=== PATIENT | female | born 1955 | race Caucasian/White ===

== ENCOUNTER 2020-08-29 09:02 | Outpatient (REF) | payer BC, SELFPAY ==
--- NOTE | 2020-08-29 09:06 | XR_ITS ---
EXAMINATION: XR HIP, RIGHT CLINICAL INFORMATION: Pain COMPARISON: None TECHNIQUE: 2 views of the right hip of the right hip. FINDINGS: There is no evidence of acute fracture or dislocation of the right hip. Right hip joint spaces maintained. Subchondral cysts/. Erosion is seen about the junctions femoral head and neck. No destructive bony lesion. No femoral head collapse. XR/XR hip RT min 2V IMPRESSION: No significant bony abnormality of the right hip identified.
== END 2020-08-29 09:03 | disposition home or self-care (01) ==
LOC: HO.HMGCX 09:02
PROVIDERS: PCP Internal Medicine; Visit Provider Internal Medicine
DX: M25.551 Pain in right hip (principal); S82.899A Other fracture of unspecified lower leg, initial encounter for closed fracture; Z78.0 Asymptomatic menopausal state
CPT/HCPCS: 73502

== ENCOUNTER 2020-11-20 07:47 | Outpatient (REF) | payer BC, SELFPAY ==
--- NOTE | ~2020-11-20 | MM_ITS ---
EXAMINATION: BONE DENSITOMETRY CLINICAL INDICATION: Menopause. COMPARISON: Baseline BD dated 07/18/2010. MRI cervical spine report, 10/23/2014 TECHNIQUE: Using a [employer] DXA System (software version: 13.1) manufactured by [employer], dual-energy x-ray absorptiometry was performed of the lumbar spine and left hip. The images are of good technical quality. Summary results are attached. FINDINGS: AP SPINE L1-L4: Current: BMD 0.917 g/cm2, Z-score -0.4, T-score -2.2, osteopenia, 21.3% decrease from baseline (<5% change is not significant). Baseline: BMD 1.165 g/cm2. LEFT FEMUR, NECK: Current: BMD 0.628 g/cm2, Z-score -1.4, T-score -3.0, osteoporosis. Baseline: BMD 0.827 g/cm2. LEFT FEMUR, TOTAL: Current: BMD 0.594 g/cm2, Z-score -2.0, T-score -3.3, osteoporosis, 22.7% decrease from baseline (<5% change is not significant). Baseline: BMD 0.768 g/cm2. IDENTIFIED RISK FACTORS: Menopause, history of fracture (adult). HISTORY OF FRACTURE: Ankle. No insufficiency fracture reported. History sheet notes spinal fracture (epidural collection noted on remote cervical MR 2015). MEDICATIONS: Vitamin D. MM/XR DEXA axial skeleton IMPRESSION: 1. DIAGNOSIS: Osteoporosis based on the lowest T-score value of -3.3 in the total femur applying World Health Organization criteria. 2. 10-YEAR FRACTURE RISK PREDICTION, FRAX: Major osteoporotic fracture (clinical spine, forearm, hip or shoulder) 14.5%. Hip fracture 4.2%. 3. Treatment Recommendations: NOF guidelines recommend consideration for treatment in postmenopausal women and men age 50 and older presenting with the following: -A hip or vertebral (clinical or morphometric) fracture. -T-score less than or equal to -2.5 at the femoral neck or spine after appropriate evaluation to exclude secondary causes. -Low bone mass at the hip or spine and a 10-year fracture probability by FRAX of greater than or equal to 3% for hip fracture or greater than or equal to 20% for major osteoporotic fracture based on the [place] adapted WHO algorithm. 4. Other Recommendations: All treatment decisions require clinical judgment and consideration of individual patient factors, including patient preferences, comorbidities, previous drug use, risk factors not captured in the FRAX model (e.g. frailty, falls, vitamin D deficiency, increased bone turnover, interval significant decline in bone density) and possible under or overestimation of fracture risk by FRAX. Additional medical evaluation for secondary cause of low bone mineral density may be appropriate. FUTURE SCAN RECOMMENDATION: People with diagnosed cases of osteoporosis or at high risk for fracture should have regular bone mineral density tests. For patients eligible for Medicare, routine testing is allowed once every 2 years. The testing frequency can be increased to one year for patients who have rapidly progressing disease, those who are receiving or discontinuing medical therapy to restore bone mass, or have additional risk factors. ctors.
--- NOTE | ~2020-11-20 | MM_ITS ---
EXAMINATION: MM SCREENING DIGITAL BREAST TOMOSYNTHESIS, BILATERAL CLINICAL INFORMATION: Screening. Asymptomatic. The lifetime risk of breast cancer based on the Tyrer-Cuzick Model is 7%. COMPARISON: Mammography: 11/15/2019, 11/08/2018, 09/30/2017, 09/11/2017 TECHNIQUE: Digital breast tomosynthesis is performed in both the craniocaudal and mediolateral oblique views along with computer-aided detection (CAD). Synthesized 2D images are generated from the tomosynthesis. Additional exaggerated left CC view is provided. FINDINGS: The breasts are heterogeneously dense, which may obscure small masses (ACR BI-RADS breast composition Category c). There are no significant masses, abnormal calcifications, or other abnormalities. Parenchymal pattern is similar to prior studies. The axilla and skin contours are unremarkable. MM/MM tomosynthesis screening BI IMPRESSION: No mammographic evidence of malignancy. ASSESSMENT: BI-RADS 1: Negative RECOMMENDATION: Routine annual mammography screening. This patient's information was entered into a reminder system with a target due date for their next mammogram.
== END 2020-11-20 07:48 | disposition home or self-care (01) ==
LOC: HO.MAMMO 07:47
PROVIDERS: PCP Internal Medicine; Visit Provider Internal Medicine
DX: Z12.31 Encounter for screening mammogram for malignant neoplasm of breast (principal); Z13.820 Encounter for screening for osteoporosis; S82.899A Other fracture of unspecified lower leg, initial encounter for closed fracture; Z78.0 Asymptomatic menopausal state
CPT/HCPCS: 77063; 77067; 77080

== ENCOUNTER → 2021-03-25 11:10 | Outpatient (BNVA) | payer BC, SELFPAY | PROVIDERS: PCP Internal Medicine; Visit Provider Internal Medicine ==

== ENCOUNTER 2021-04-02 07:53 | Outpatient (REF) | payer BC, SELFPAY ==
[2021-04-02 09:21] LABS: Alanine Aminotransferase 16 U/L (0-31); Albumin Level 4.3 g/dL (3.5-5.0); Alkaline Phosphatase 134 U/L (39-117); Anion Gap 12 (12-20); Aspartate Amino Transferase 24 U/L (5-31); Bilirubin Total 0.5 mg/dL (0.0-1.0); Blood Urea Nitrogen 11 mg/dL (9-16); Carbon Dioxide 28 mmol/L (22-29); Chloride 104 mmol/L (96-108); Estimated Glomerular Filt Rate > 60; Glucose Random 80 mg/dL (60-115); Phosphorus 4.2 mg/dL (2.7-4.5); Sodium 139 mmol/L (135-145); Total Protein 6.9 g/dL (6.5-8.0)
[2021-04-02 09:46] LABS: Free T4 (Free Thyroxine) 1.13 ng/dL (0.71-1.85); Thyroid Stimulating Hormone 0.82 uIU/mL (0.32-4.0); Vitamin D 25-OH Total 38.8 ng/mL (>30)
[2021-04-03 09:17] LABS: Calcium, Ionized 5.3 mg/dL (4.8-5.6)
[2021-04-03 13:46] LABS: Total Volume 24 Hour Urine 3175 mL
[2021-04-03 16:02] LABS: Creatinine, 24Hr Urine 0.8 G/Day (1.0-2.0)
[2021-04-04 09:12] LABS: Calcium (PTHI) 9.9 mg/dL (8.6-10.4); PTHI 43 pg/mL (14-64)
[2021-04-04 19:01] LABS: Calcium, 24 Hr Urine 140 mg/24 h; Calcium/Creatinine Ratio 163 mg/g creat (30-275); Creatinine 24Hr Urine 0.86 g/24 h (0.50-2.15)
[2021-04-08 13:12] LABS: Prot Elec - Albumin 4.4 g/dL (3.8-4.8); Prot Elec - Alpha1 0.3 g/dL (0.2-0.3); Prot Elec - Alpha2 0.7 g/dL (0.5-0.9); Prot Elec - Beta 1 0.5 g/dL (0.4-0.6); Prot Elec - Beta 2 0.2 g/dL (0.2-0.5); Prot Elec - Gamma 0.9 g/dL (0.8-1.7); Prot Elec - Total Protein 6.9 g/dL (6.1-8.1)
== END 2021-04-02 07:54 | disposition home or self-care (01) ==
LOC: HO.LAB 07:53
PROVIDERS: Absent Provider Internal Medicine; PCP Internal Medicine; Visit Provider Internal Medicine
DX: M81.0 Age-related osteoporosis without current pathological fracture (principal); E55.9 Vitamin D deficiency, unspecified
CPT/HCPCS: 36415; 80053; 82306; 82330; 82340; 82570; 83970; 84100; 84155; 84165; 84439; 84443

== ENCOUNTER 2021-04-06 10:51 | Outpatient (REF) | payer BC, SELFPAY ==
[2021-04-11 06:46] LABS: N-Telopeptide 106 (see note); NTXCreaRU 65 mg/dL (20-275)
== END 2021-04-06 10:52 | disposition home or self-care (01) ==
LOC: HO.LNP 10:51
PROVIDERS: Visit Provider Internal Medicine
DX: M81.0 Age-related osteoporosis without current pathological fracture (principal)
CPT/HCPCS: 82523

== ENCOUNTER → 2021-07-01 07:52 | Outpatient (BNVA) | payer BC, SELFPAY | PROVIDERS: PCP Internal Medicine; Visit Provider Internal Medicine ==

== ENCOUNTER 2021-07-16 09:14 | Outpatient (REF) | payer BC, SELFPAY ==
[2021-07-16 10:29] LABS: Albumin Level 4.3 g/dL (3.5-5.0); Calcium 9.9 mg/dL (8.4-10.2)
[2021-07-16 10:47] LABS: Alanine Aminotransferase 32 U/L (0-31); Albumin Level 4.4 g/dL (3.5-5.0); Alkaline Phosphatase 136 U/L (39-117); Anion Gap 14 (12-20); Aspartate Amino Transferase 42 U/L (5-31); Bilirubin Total 0.5 mg/dL (0.0-1.0); Blood Urea Nitrogen 9 mg/dL (9-16); Carbon Dioxide 27 mmol/L (22-29); Chloride 104 mmol/L (96-108); Cholesterol 181 mg/dL; Estimated Glomerular Filt Rate > 60; Glucose Random 87 mg/dL (60-115); HDL Cholesterol 82 mg/dL; LDL Cholesterol Calculated 75 mg/dl; Phosphorus 4.4 mg/dL (2.7-4.5); Potassium 4.8 mmol/L (3.3-5.1); Sodium 140 mmol/L (135-145); Triglycerides 124 mg/dL
[2021-07-18 15:52] LABS: Calcium (PTHI) 9.7 mg/dL (8.6-10.4); PTHI 43 pg/mL (14-64)
[2021-07-19 09:36] LABS: Alkaline Phosphatase Bone 26.7 mcg/L (5.6-29.0)
== END 2021-07-16 09:15 | disposition home or self-care (01) ==
LOC: HO.LAB 09:14
PROVIDERS: PCP Internal Medicine; Visit Provider Internal Medicine
DX: I10 Essential (primary) hypertension (principal); M81.0 Age-related osteoporosis without current pathological fracture; Z78.0 Asymptomatic menopausal state; E55.9 Vitamin D deficiency, unspecified
CPT/HCPCS: 36415; 80053; 80061; 82040; 82306; 82310; 83970; 84075; 84100

== ENCOUNTER 2021-07-18 07:31 | Outpatient (REF) | payer BC, SELFPAY ==
[2021-07-18 08:15] LABS: Creatinine, mg/dL 26.69
[2021-07-18 09:22] LABS: Creatinine, 24Hr Urine 0.9 G/Day (1.0-2.0); Total Volume 24 Hour Urine 3225 mL
[2021-07-19 18:52] LABS: Calcium, 24 Hr Urine 123 mg/24 h; Calcium/Creatinine Ratio 131 mg/g creat (30-275); Creatinine 24Hr Urine 0.94 g/24 h (0.50-2.15)
== END 2021-07-18 07:32 | disposition home or self-care (01) ==
LOC: HO.LNP 07:31
PROVIDERS: Visit Provider Internal Medicine
DX: M81.0 Age-related osteoporosis without current pathological fracture (principal)
CPT/HCPCS: 82340; 82570

== ENCOUNTER 2021-07-19 10:01 | Outpatient (REF) | payer BC, SELFPAY ==
[2021-07-19 12:05] LABS: Vitamin D 25-OH Total 43.5 ng/mL (>30)
[2021-07-19 12:20] LABS: Alanine Aminotransferase 84 U/L (0-31); Albumin Level 4.4 g/dL (3.5-5.0); Alkaline Phosphatase 143 U/L (39-117); Anion Gap 12 (12-20); Aspartate Amino Transferase 71 U/L (5-31); Bilirubin Direct 0.2 mg/dL (0.0-0.5); Bilirubin Total 0.6 mg/dL (0.0-1.0); Blood Urea Nitrogen 10 mg/dL (9-16); Calcium 10.2 mg/dL (8.4-10.2); Carbon Dioxide 28 mmol/L (22-29); Chloride 104 mmol/L (96-108); Estimated Glomerular Filt Rate > 60; Glucose Fasting 88 mg/dL (60-99); Potassium 4.8 mmol/L (3.3-5.1); Sodium 139 mmol/L (135-145); Total Protein 6.9 g/dL (6.5-8.0)
== END 2021-07-19 10:02 | disposition home or self-care (01) ==
LOC: HO.LAB 10:01
PROVIDERS: PCP Internal Medicine; Visit Provider Internal Medicine
DX: I10 Essential (primary) hypertension (principal); M81.0 Age-related osteoporosis without current pathological fracture; Z78.0 Asymptomatic menopausal state
CPT/HCPCS: 36415; 80048; 80076; 82306

== ENCOUNTER 2021-07-25 07:26 | Outpatient (REF) | payer BC, SELFPAY ==
[2021-07-25 11:39] LABS: Alanine Aminotransferase 31 U/L (0-31); Aspartate Amino Transferase 25 U/L (5-31)
[2021-07-26 09:11] LABS: Lyme Abs Screen <0.90 index
== END 2021-07-25 07:27 | disposition home or self-care (01) ==
LOC: HO.HMGCLDS 07:26
PROVIDERS: PCP Internal Medicine; Visit Provider Internal Medicine
DX: I10 Essential (primary) hypertension (principal); M81.0 Age-related osteoporosis without current pathological fracture; Z78.0 Asymptomatic menopausal state; T14.8XXA Other injury of unspecified body region, initial encounter; W57.XXXA Bitten or stung by nonvenomous insect and other nonvenomous arthropods, initial encounter
CPT/HCPCS: 36415; 84450; 84460; 86617; 86618

== ENCOUNTER 2021-08-12 14:16 | Outpatient (REF) | payer BC, SELFPAY ==
--- NOTE | ~2021-08-12 | US_ITS ---
EXAMINATION: US THYROID CLINICAL INFORMATION: Age-related osteoporosis, ? enlarged parathyroid. COMPARISON: None TECHNIQUE: Linear transducer grayscale and color Doppler examination with attention to the region of the thyroid. FINDINGS: SIZE: Measurements of the thyroid lobes and nodules are given in sagittal, anteroposterior and transverse dimensions respectively. Right Thyroid Lobe: 5.7 x 1.7 x 1.4 cm, volume 7.1 mL. Parenchyma: The gland echotexture is heterogeneous. Thyroid vascularity is increased. Left Thyroid Lobe: 4.8 x 1.7 x 1.6 cm, volume 6.8 mL. Parenchyma: The gland echotexture is heterogeneous. Thyroid vascularity is increased. Isthmus: 0.3 cm in maximum AP dimension. Estimated total number of nodules greater than or equal to 1 cm: 0. Reptile Farmer nodules are described as follows: 1. Location: Right isthmus. Size: 0.7 x 0.3 x 0.5 cm, volume 0.06 mL. Nodule characteristics: Composition: Spongiform (0). Echogenicity: Anechoic (0). Shape: Not taller than wide (0). Margins: Smooth (0). Echogenic Foci: None (0). ACR TI-RADS total points: 0 ACR TI-RADS category: 1 2. Location: Lateral mid right. Size: 0.4 x 0.3 x 0.3 cm, volume 0.02 mL. Nodule characteristics: Composition: Spongiform (0). Echogenicity: Anechoic (0). Shape: Not taller than wide (0). Margins: Smooth (0). Echogenic Foci: None (0). ACR TI-RADS total points: 0 ACR TI-RADS category: 1 3. Location: Mid/inferior right. Size: 0.5 x 0.4 x 0.4 cm, volume 0.04 mL. Nodule characteristics: Composition: Solid (2). Echogenicity: Isoechoic (1). Shape: Not taller than wide (0). Margins: Ill-defined (0). Echogenic Foci: None (0). ACR TI-RADS total points: 3 ACR TI-RADS category: 3 NODES: No lymphadenopathy is seen in the tissue surrounding the thyroid gland. US/US thyroid IMPRESSION: Heterogeneous, hypervascular multinodular thyroid gland. All nodules are subcentimeter in size and do not warrant follow up imaging per ACR recommendations. Correlation with thyroid function tests recommended. ACR TI-RADS RECOMMENDATION REFERENCE: Ultrasound-guided fine-needle aspiration, followup ultrasound, no further follow up. * TR1 (0 point) and TR 2 (2 points): No FNA or follow up * TR3 (3 points): FNA if more than or equal to 2.5 cm in maximum dimension, followup ultrasound in 1, 3 and 5 years if 1.5 to 2.4 cm in maximum dimension. * TR3, TR4 or TR5 nodules that are below the size threshold for follow up receive no follow up.
== END 2021-08-12 14:17 | disposition home or self-care (01) ==
LOC: HO.HMGCX 14:16
PROVIDERS: PCP Internal Medicine; Visit Provider Internal Medicine
DX: M81.0 Age-related osteoporosis without current pathological fracture (principal)
CPT/HCPCS: 76536

== ENCOUNTER → 2021-09-10 08:30 | Outpatient (BNVA) | payer MEDICARE, SELFPAY | PROVIDERS: PCP Internal Medicine; Referring Provider Internal Medicine; Visit Provider Nurse Practitioner Family | DX: R74.8 Abnormal levels of other serum enzymes (principal) | CPT/HCPCS: 99202 ==

== ENCOUNTER 2021-09-11 08:25 | Outpatient (REF) | payer MEDICARE, SELFPAY ==
[2021-09-16 13:16] LABS: Mitochondrial Antibodies NEGATIVE (NEGATIVE)
[2021-09-17 20:52] LABS: Alk.Phos Iso. Macrohepatic 0 % (<=0); Alk.Phos Isoenzymes Bone 57 % (28-66); Alk.Phos Isoenzymes Intest 10 % (1-24); Alk.Phos Isoenzymes Liver 33 % (25-69); Alk.Phos Isoenzymes Placental 0 % (<=0); Alk.Phos Isoenzymes Total 133 U/L (37-153)
[2021-09-18 22:15] LABS: Alkaline Phosphatase Bone 28.6 mcg/L (5.6-29.0)
== END 2021-09-11 08:26 | disposition home or self-care (01) ==
LOC: HO.HMGCLDS 08:25
PROVIDERS: PCP Internal Medicine; Visit Provider Nurse Practitioner Family
DX: R74.8 Abnormal levels of other serum enzymes (principal)
CPT/HCPCS: 36415; 84075; 84080; 86255; 86256

== ENCOUNTER 2021-09-17 10:55 | Outpatient (REF) | payer MEDICARE, SELFPAY ==
--- NOTE | ~2021-09-17 | US_ITS ---
EXAMINATION: US ABDOMEN COMPLETE CLINICAL INFORMATION: Abnormal levels of other serum enzymes. COMPARISON: None TECHNIQUE: Real-time imaging of the abdominal viscera. FINDINGS: PANCREAS: Visualized portions of pancreas are unremarkable. ABDOMINAL AORTA: The proximal, mid, and distal segments are normal in caliber. INFERIOR VENA CAVA: Visualized portions are normal. LIVER: Normal. The liver is normal in size. The liver contour is normal. Parenchymal echogenicity is normal. No focal hepatic lesion. There is no intrahepatic biliary duct dilatation seen. GALLBLADDER: Normal. The gallbladder is physiologically distended without evidence of stones, sludge, polyps, wall thickening or pericholecystic fluid. COMMON BILE DUCT: Normal in caliber measuring 0.3 cm in diameter. RIGHT KIDNEY: There is an extrarenal pelvis. No hydronephrosis. No renal calculi or focal parenchymal lesions. The kidney measures 10.9 cm in maximum dimension. LEFT KIDNEY: Normal. No hydronephrosis. No renal calculi or focal parenchymal lesions. The kidney measures 10.3 cm in maximum dimension. SPLEEN: Normal. The spleen measures 7.1 cm in maximum dimension. FREE FLUID: None. US/US abdomen complete IMPRESSION: Unremarkable abdominal ultrasound.
== END 2021-09-17 10:56 | disposition home or self-care (01) ==
LOC: HO.US 10:55
PROVIDERS: PCP Internal Medicine; Visit Provider Nurse Practitioner Family
DX: R74.8 Abnormal levels of other serum enzymes (principal)
CPT/HCPCS: 76700

== ENCOUNTER → 2021-09-26 09:57 | Outpatient (BNVA) | payer MEDICARE, SELFPAY | PROVIDERS: PCP Internal Medicine; Visit Provider Internal Medicine | DX: M81.0 Age-related osteoporosis without current pathological fracture (principal); E55.9 Vitamin D deficiency, unspecified | CPT/HCPCS: Q3014 ==

== ENCOUNTER → 2021-10-14 08:35 | Outpatient (BNVA) | payer MEDICARE, SELFPAY | PROVIDERS: PCP Internal Medicine; Referring Provider Internal Medicine; Visit Provider Nurse Practitioner Family | DX: R74.8 Abnormal levels of other serum enzymes (principal) | CPT/HCPCS: 99212 ==

== ENCOUNTER 2021-11-25 08:21 | Outpatient (REF) | payer MEDICARE, SELFPAY ==
--- NOTE | ~2021-11-25 | MM_ITS ---
EXAMINATION: MM SCREENING DIGITAL BREAST TOMOSYNTHESIS, BILATERAL CLINICAL INFORMATION: Screening. Asymptomatic. The lifetime risk of breast cancer based on the Tyrer-Cuzick Model is 7%. COMPARISON: Mammography: 11/20/2020, 11/15/2019, 11/08/2018, 09/30/2017, 09/11/2017 TECHNIQUE: Digital breast tomosynthesis is performed in both the craniocaudal and mediolateral oblique views along with computer-aided detection (CAD). Synthesized 2D images are generated from the tomosynthesis. FINDINGS: The breasts are heterogeneously dense, which may obscure small masses (ACR BI-RADS breast composition Category c). There are no significant masses, abnormal calcifications, or other abnormalities. Parenchymal pattern is similar to prior studies. There is no developing density or architectural abnormality. The axilla and skin contours are unremarkable. No significant changes. MM/MM tomosynthesis screening BI IMPRESSION: No mammographic evidence of malignancy. ASSESSMENT: BI-RADS 1: Negative RECOMMENDATION: Routine annual mammography screening. This patient's information was entered into a reminder system with a target due date for their next mammogram.
== END 2021-11-25 08:22 | disposition home or self-care (01) ==
LOC: HO.MAMMO 08:21
PROVIDERS: PCP Internal Medicine; Visit Provider Internal Medicine
DX: Z12.31 Encounter for screening mammogram for malignant neoplasm of breast (principal)
CPT/HCPCS: 77063; 77067

== ENCOUNTER → 2022-03-27 11:47 | Outpatient (BNVA) | payer MEDICARE, SELFPAY | PROVIDERS: PCP Internal Medicine; Visit Provider Internal Medicine | DX: M81.0 Age-related osteoporosis without current pathological fracture (principal); E55.9 Vitamin D deficiency, unspecified; E04.1 Nontoxic single thyroid nodule | CPT/HCPCS: Q3014 ==

== ENCOUNTER 2022-06-03 07:13 | Outpatient (REF) | payer MEDICARE, SELFPAY ==
[2022-06-03 12:13] LABS: Alanine Aminotransferase 21 U/L (0-31); Albumin Level 4.2 g/dL (3.5-5.0); Alkaline Phosphatase 73 U/L (39-117); Anion Gap 14 (12-20); Aspartate Amino Transferase 25 U/L (5-31); Bilirubin Total 0.6 mg/dL (0.0-1.0); Blood Urea Nitrogen 12 mg/dL (9-16); Calcium 9.1 mg/dL (8.4-10.2); Carbon Dioxide 24 mmol/L (22-29); Chloride 104 mmol/L (96-108); Estimated Glomerular Filt Rate > 60; Glucose Random 97 mg/dL (60-115); Phosphorus 3.9 mg/dL (2.7-4.5); Potassium 4.4 mmol/L (3.3-5.1); Sodium 138 mmol/L (135-145); Total Protein 6.8 g/dL (6.5-8.0)
[2022-06-03 12:38] LABS: Free T4 (Free Thyroxine) 1.04 ng/dL (0.71-1.85); Thyroid Stimulating Hormone 1.12 uIU/mL (0.32-4.0)
[2022-06-04 14:46] LABS: Calcium (PTHI) 9.4 mg/dL (8.6-10.4); PTHI 67 pg/mL (16-77)
== END 2022-06-03 07:14 | disposition home or self-care (01) ==
LOC: HO.HMGCLDS 07:13
PROVIDERS: PCP Internal Medicine; Visit Provider Internal Medicine
DX: E04.2 Nontoxic multinodular goiter (principal); E55.9 Vitamin D deficiency, unspecified; M81.0 Age-related osteoporosis without current pathological fracture
CPT/HCPCS: 36415; 80053; 82306; 83970; 84100; 84439; 84443

== ENCOUNTER 2022-07-24 11:53 | Outpatient (REF) | payer MEDICARE, SELFPAY ==
--- NOTE | ~2022-07-24 | XR_ITS ---
EXAMINATION: XR HIP, LEFT CLINICAL INFORMATION: Pain. COMPARISON: None TECHNIQUE: AP and frog-leg lateral views of the left hip. FINDINGS: Bones and soft tissues are normal. No fracture. Alignment is anatomic. Hip joint space is maintained. There are pelvic phleboliths. XR/XR hip LT min 2V IMPRESSION: Normal left hip.
== END 2022-07-24 11:54 | disposition home or self-care (01) ==
LOC: HO.HMGCX 11:53
PROVIDERS: PCP Internal Medicine; Visit Provider Internal Medicine
DX: M25.552 Pain in left hip (principal)
CPT/HCPCS: 73502

== ENCOUNTER 2022-08-28 09:53 | Outpatient (REF) | payer MEDICARE, SELFPAY ==
--- NOTE | ~2022-08-28 | US_ITS ---
EXAMINATION: US THYROID CLINICAL INFORMATION: Nontoxic single thyroid nodule. COMPARISON: Ultrasound soft tissue head/neck thyroid dated 08/12/2021. TECHNIQUE: Linear transducer grayscale and color Doppler examination with attention to the region of the thyroid. FINDINGS: SIZE: Measurements of the thyroid lobes and nodules are given in sagittal, anteroposterior and transverse dimensions respectively. Right Thyroid Lobe: 5.1 x 1.6 x 2.0 cm, volume 8.2 mL. Previously 5.7 x 1.7 x 1.4 cm, volume 7.1 mL. Parenchyma: The gland echotexture is homogeneous. Thyroid vascularity is normal. Left Thyroid Lobe: 4.7 x 1.6 x 1.3 cm, volume 5.3 mL. Previously 4.8 x 1.7 x 1.6 cm, volume 6. mL. Parenchyma: The gland echotexture is homogeneous. Thyroid vascularity is normal. Isthmus: 0.3 cm in maximum AP dimension. Previously 0.3 cm. Estimated total number of nodules greater than or equal to 1 cm: 0. Manager Skilled nodules are described as follows: 1. Location: Right isthmus. Size: 0.6 x 0.6 x 0.3 cm, volume 0.05 mL. Previously: 0.7 x 0.3 x 0.5 cm, volume 0.06 mL. Nodule characteristics: Composition: Solid (2). Echogenicity: Hyperechoic (1). Shape: Not taller than wide (0). Margins: Smooth (0). Echogenic Foci: None (0). ACR TI-RADS total points: 3 Previous: 0 ACR TI-RADS category: 3 Previous: 1 Significant change in size (>/= 20% in 2 dimensions and minimal increase of 2 mm or 50% or greater increase in volume): None Change in features: None Change in ACR TI-RADS risk category: None 2. Location: Right mid/lateral. Size: 0.3 x 0.2 x 0.3 cm, volume 0.09 mL. Previously: 0.4 x 0.3 x 0.3 cm, volume 0.02 mL. Nodule characteristics: Composition: Spongiform (0). Echogenicity: Anechoic (0). Shape: Not taller than wide (0). Margins: Smooth (0). Echogenic Foci: None (0). ACR TI-RADS total points: 0 Previous: 0 ACR TI-RADS category: 1 Previous: 1 Significant change in size (>/= 20% in 2 dimensions and minimal increase of 2 mm or 50% or greater increase in volume): None Change in features: None Change in ACR TI-RADS risk category: None 3. Location: Right inferior medial. Size: 0.4 x 0.4 x 0.3 cm, volume 0.02 mL. Previously: 0.5 x 0.4 x 0.4 cm, volume 0.04 mL. Nodule characteristics: Composition: Solid (2). Echogenicity: Hyperechoic (1). Shape: Not taller than wide (0). Margins: Ill-defined (0). Echogenic Foci: None (0). ACR TI-RADS total points: 3 Previous: 3 ACR TI-RADS category: 3 Previous: 3 Significant change in size (>/= 20% in 2 dimensions and minimal increase of 2 mm or 50% or greater increase in volume): None Change in features: None Change in ACR TI-RADS risk category: None NODES: No lymphadenopathy is seen in the tissue surrounding the thyroid gland. US/US thyroid IMPRESSION: Mild heterogeneous slightly enlarged thyroid gland with small nonsuspicious nodules. The ultrasound is stable compared to last study. Recommend continued follow-up. ACR TI-RADS RECOMMENDATION REFERENCE: Ultrasound-guided fine-needle aspiration, followup ultrasound, no further follow up. * TR1 (0 point) and TR 2 (2 points): No FNA or follow up * TR3 (3 points): FNA if more than or equal to 2.5 cm in maximum dimension, followup ultrasound in 1, 3 and 5 years if 1.5 to 2.4 cm in maximum dimension. * TR4 (4-6 points): FNA if more than or equal to 1.5 cm in maximum dimension, followup ultrasound in 1, 2, 3 and 5 years if 1 to 1.4 cm in maximum dimension. * TR5 (more than or equal to 7 points): FNA if more than or equal to 1 cm in maximum dimension, followup ultrasound every year for 5 years if 0.5 to 0.9 cm in maximum dimension. * TR3, TR4 or TR5 nodules that are below the size threshold for follow up receive no follow up.
== END 2022-08-28 09:54 | disposition home or self-care (01) ==
LOC: HO.US 09:53
PROVIDERS: Visit Provider Internal Medicine
DX: E04.1 Nontoxic single thyroid nodule (principal)
CPT/HCPCS: 76536

== ENCOUNTER → 2022-11-05 09:21 | Outpatient (BNVA) | payer MEDICARE, SELFPAY | PROVIDERS: PCP Internal Medicine; Visit Provider Internal Medicine | DX: M81.0 Age-related osteoporosis without current pathological fracture (principal); E55.9 Vitamin D deficiency, unspecified; E04.2 Nontoxic multinodular goiter | CPT/HCPCS: 36415; 80053; 82306; 83970; 84100; 84439; 84443; 99212 ==

== ENCOUNTER 2022-11-05 09:55 | Outpatient (REF) | payer MEDICARE, SELFPAY ==
[2022-11-05 12:17] LABS: Alanine Aminotransferase 25 U/L (0-31); Albumin Level 4.3 g/dL (3.5-5.0); Alkaline Phosphatase 77 U/L (39-117); Anion Gap 15 (12-20); Aspartate Amino Transferase 33 U/L (5-31); Bilirubin Total 0.7 mg/dL (0.0-1.0); Blood Urea Nitrogen 13 mg/dL (9-16); Calcium 9.9 mg/dL (8.4-10.2); Carbon Dioxide 23 mmol/L (22-29); Chloride 105 mmol/L (96-108); Estimated Glomerular Filt Rate > 60; Glucose Random 89 mg/dL (60-115); Phosphorus 3.6 mg/dL (2.7-4.5); Potassium 4.4 mmol/L (3.3-5.1); Sodium 139 mmol/L (135-145); Total Protein 6.7 g/dL (6.5-8.0)
[2022-11-05 15:20] LABS: Thyroid Stimulating Hormone 0.79 uIU/mL (0.32-4.0); Vitamin D 25-OH Total 31.3 ng/mL (>30)
[2022-11-06 12:39] LABS: Calcium (PTHI) 9.9 mg/dL (8.6-10.4); PTHI 73 pg/mL (16-77)
== END 2022-11-05 09:56 | disposition home or self-care (01) ==
LOC: HO.10HDL 09:55
PROVIDERS: Visit Provider Internal Medicine
DX: Z13.89 Encounter for screening for other disorder (principal)
CPT/HCPCS: 36415; 80053; 82306; 83970; 84100; 84439; 84443

== ENCOUNTER 2022-11-11 08:27 | Outpatient (REF) | payer MEDICARE, SELFPAY ==
[2022-11-17 15:08] LABS: N-Telopeptide 16 (see note); NTXCreaRU 92 mg/dL (20-275)
== END 2022-11-11 08:28 | disposition home or self-care (01) ==
LOC: HO.10HDLNP 08:27
PROVIDERS: Visit Provider Internal Medicine
DX: M81.0 Age-related osteoporosis without current pathological fracture (principal)
CPT/HCPCS: 82523

== ENCOUNTER 2022-12-02 12:30 | Outpatient (REF) | payer MEDICARE, SELFPAY ==
--- NOTE | ~2022-12-02 | MM_ITS ---
EXAMINATION: MM SCREENING DIGITAL BREAST TOMOSYNTHESIS, BILATERAL CLINICAL INFORMATION: Screening. Asymptomatic. The lifetime risk of breast cancer based on the Tyrer-Cuzick Model is 9%. COMPARISON: Mammography: 07/25/2022, 11/20/2020, 11/15/2019 TECHNIQUE: Digital breast tomosynthesis is performed in both the craniocaudal and mediolateral oblique views along with computer-aided detection (CAD). Synthesized 2D images are generated from the tomosynthesis. FINDINGS: The breasts are heterogeneously dense, which may obscure small masses (ACR BI-RADS breast composition Category c). There are no significant masses, abnormal calcifications, or other abnormalities. No architectural abnormality or developing density or significant change from prior studies. The axilla are unremarkable. MM/MM tomosynthesis screening BI IMPRESSION: No mammographic evidence of malignancy. ASSESSMENT: BI-RADS 1: Negative RECOMMENDATION: Routine annual mammography screening. This patient's information was entered into a reminder system with a target due date for their next mammogram.
--- NOTE | ~2022-12-02 | MM_ITS ---
EXAMINATION: BONE DENSITOMETRY CLINICAL INDICATION: Age-related osteoporosis without current pathological fracture. COMPARISON: Previous BD dated 11/20/2020 and baseline BD dated 07/18/2010. TECHNIQUE: Using a [employer] DXA System (software version: 13.1) manufactured by [employer], dual-energy x-ray absorptiometry was performed of the lumbar spine and left hip. The images are of good technical quality. Summary results are attached. FINDINGS: AP SPINE L1-L4: Current: BMD 0.952 g/cm2, Z-score -0.1, T-score -1.9, osteopenia, 3.8% increase from previous, 18.3% decrease from baseline (<5% change is not significant). Prior: BMD 0.917 g/cm2. Baseline: BMD 1.165 g/cm2. LEFT FEMUR, NECK: Current: BMD 0.683 g/cm2, Z-score -0.9, T-score -2.6, osteoporosis. Prior: BMD 0.628 g/cm2. Baseline: BMD 0.827 g/cm2. LEFT FEMUR, TOTAL: Current: BMD 0.627 g/cm2, Z-score -1.6, T-score -3.0, osteoporosis, 5.6% increase from previous, 18.4% decrease from baseline (<5% change is not significant). Prior: BMD 0.594 g/cm2. Baseline: BMD 0.768 g/cm2. IDENTIFIED RISK FACTORS: Menopause, osteoporosis, history of fracture (adult). HISTORY OF FRACTURE: Ankle. MEDICATIONS: Vitamin D, bisphosphonate. MM/XR DEXA axial skeleton IMPRESSION: 1. DIAGNOSIS: Osteoporosis based on the lowest T-score value of -3.0 in the total femur applying World Health Organization criteria. 2. 10-YEAR FRACTURE RISK PREDICTION, FRAX: According to the guidelines, FRAX calculation should only be performed on patients in the osteopenia bone density category. Therefore, FRAX was not performed on this patient. 3. Treatment Recommendations: NOF guidelines recommend consideration for treatment in postmenopausal women and men age 50 and older presenting with the following: -A hip or vertebral (clinical or morphometric) fracture. -T-score less than or equal to -2.5 at the femoral neck or spine after appropriate evaluation to exclude secondary causes. -Low bone mass at the hip or spine and a 10-year fracture probability by FRAX of greater than or equal to 3% for hip fracture or greater than or equal to 20% for major osteoporotic fracture based on the [place] adapted WHO algorithm. 4. Other Recommendations: All treatment decisions require clinical judgment and consideration of individual patient factors, including patient preferences, comorbidities, previous drug use, risk factors not captured in the FRAX model (e.g. frailty, falls, vitamin D deficiency, increased bone turnover, interval significant decline in bone density) and possible under or overestimation of fracture risk by FRAX. Additional medical evaluation for secondary cause of low bone mineral density may be appropriate. FUTURE SCAN RECOMMENDATION: People with diagnosed cases of osteoporosis or at high risk for fracture should have regular bone mineral density tests. For patients eligible for Medicare, routine testing is allowed once every 2 years. The testing frequency can be increased to one year for patients who have rapidly progressing disease, those who are receiving or discontinuing medical therapy to restore bone mass, or have additional risk factors.
== END 2022-12-02 12:31 | disposition home or self-care (01) ==
LOC: HO.MAMMO 12:30
PROVIDERS: PCP Internal Medicine; Visit Provider Internal Medicine
DX: Z12.31 Encounter for screening mammogram for malignant neoplasm of breast (principal); Z13.820 Encounter for screening for osteoporosis; M81.0 Age-related osteoporosis without current pathological fracture; Z78.0 Asymptomatic menopausal state
CPT/HCPCS: 77063; 77067; 77080

== ENCOUNTER → 2023-01-22 14:48 | Outpatient (BNVA) | payer MEDICARE, SELFPAY | PROVIDERS: PCP Internal Medicine; Visit Provider Internal Medicine | DX: M81.0 Age-related osteoporosis without current pathological fracture (principal); E04.1 Nontoxic single thyroid nodule; E55.9 Vitamin D deficiency, unspecified | CPT/HCPCS: 99212 ==

== ENCOUNTER 2023-04-09 08:20 | Outpatient (REF) | payer MEDICARE, SELFPAY ==
--- NOTE | ~2023-04-09 | CT_ITS ---
EXAMINATION: Chest CT without contrast high risk CLINICAL INFORMATION: Family history of ischemic heart disease and thoracic aortic aneurysm. COMPARISON: None. TECHNIQUE: Axial images through the chest without contrast. Sagittal and coronal reconstructions on the technologist workstation. This CT examination was performed using dose optimization techniques as appropriate, variously including the following: *Automated exposure control *Adjustment of mA and/or kV according to patient size (this includes techniques or standardized protocols for targeted exams where dose is matched to indication/reason for exam; i.e. extremities or head) *Use of iterative reconstruction technique DLP 2 0 6 mg/cm FINDINGS: Biapical pleural and parenchymal scarring. There are some deeper bilateral pulmonary nodules question related to pleural and parenchymal scarring for example measuring 4 mm in the right upper lobe axial image 54 series 7. The lungs are otherwise clear. No evidence of interstitial lung disease emphysema or bronchiectasis. No endobronchial or endotracheal lesion. The mediastinum is normal. The thoracic aorta is normal in caliber. No aneurysm. Normal heart size. No pericardial effusion. Interval coronary artery calcification. No enlarged hilar or mediastinal lymph nodes. Normal thyroid gland. No pleural effusion or pleural thickening. No chest wall mass or enlarged axillary lymph nodes. Images through the upper abdomen are unremarkable. Severe old-appearing T12 vertebral body compression fracture. Degenerative changes of the spine. CT/CT chest wo con - High Res IMPRESSION: Normal caliber thoracic aorta. Biapical pleural and parenchymal scarring. Severe old-appearing T12 vertebral body compression fracture.
== END 2023-04-09 08:21 | disposition home or self-care (01) ==
LOC: HO.CT 08:20
PROVIDERS: PCP Internal Medicine; Visit Provider Internal Medicine
DX: M48.54XD Collapsed vertebra, not elsewhere classified, thoracic region, subsequent encounter for fracture with routine healing (principal); Z82.49 Family history of ischemic heart disease and other diseases of the circulatory system
CPT/HCPCS: 71250

== ENCOUNTER 2023-05-29 08:05 | Outpatient (REF) | payer MEDICARE, SELFPAY ==
[2023-05-29 12:23] LABS: Cholesterol 192 mg/dL (<200); HDL Cholesterol 80 mg/dL (>40); LDL Cholesterol Calculated 97 mg/dL (<100); Triglycerides 78 mg/dL (<150)
[2023-06-04 15:48] LABS: N-Telopeptide 27 (see note); NTXCreaRU 118 mg/dL (20-275)
== END 2023-05-29 08:06 | disposition home or self-care (01) ==
LOC: HO.HMGCLDS 08:05
PROVIDERS: Internal Medicine; PCP Internal Medicine; Visit Provider Internal Medicine
DX: Z00.01 Encounter for general adult medical examination with abnormal findings (principal); I10 Essential (primary) hypertension; M81.0 Age-related osteoporosis without current pathological fracture
CPT/HCPCS: 36415; 80061; 82523

== ENCOUNTER 2023-07-14 08:50 | Outpatient (REF) | payer MEDICARE, SELFPAY ==
--- NOTE | ~2023-07-14 | US_ITS ---
EXAMINATION: US THYROID CLINICAL INFORMATION: Nontoxic single thyroid nodule. COMPARISON: Thyroid ultrasound 08/28/2022 and 08/12/2021. TECHNIQUE: Linear transducer grayscale and color Doppler examination with attention to the region of the thyroid. FINDINGS: SIZE: Measurements of the thyroid lobes and nodules are given in sagittal, anteroposterior and transverse dimensions respectively. Right Thyroid Lobe: 5.7 x 2.1 x 1.4 cm, volume 8.5 mL. Previously 5.1 x 1.6 x 2.0 cm, volume 8.2 mL. Parenchyma: The gland echotexture is homogeneous. Thyroid vascularity is increased. Left Thyroid Lobe: 5.0 x 1.7 x 1.4 cm, volume 6.2 mL. Previously 4.7 x 1.6 x 1.3 cm, volume 5.3 mL. Parenchyma: The gland echotexture is homogeneous. Thyroid vascularity is increased. Isthmus: 0.4 cm in maximum AP dimension. Previously 0.3 cm. Estimated total number of nodules greater than or equal to 1 cm: 0. Blindmaker nodules are described as follows: 1. Location: Right isthmus. Size: 0.8 x 0.3 x 0.6 cm, volume 0.08 mL. Previously: 0.6 x 0.6 x 0.3 cm, volume 0.05 mL. Nodule characteristics: Composition: Spongiform (0). ACR TI-RADS total points: 0 Previous: 3 ACR TI-RADS category: 1 Previous: 3 Significant change in size (>/= 20% in 2 dimensions and minimal increase of 2 mm or 50% or greater increase in volume): Yes Change in features: No Change in ACR TI-RADS risk category: No 2. Location: Right lower pole. Size: 0.4 x 0.3 x 0.4 cm, volume 0.02 mL. Previously: 0.3 x 0.2 x 0.3 cm, volume 0.01 mL. Nodule characteristics: Composition: Spongiform (0). ACR TI-RADS total points: 0 Previous: 0 ACR TI-RADS category: 1 Previous: 1 Significant change in size (>/= 20% in 2 dimensions and minimal increase of 2 mm or 50% or greater increase in volume): Yes Change in features: No Change in ACR TI-RADS risk category: No 3. Location: Right lower pole. Size: 0.6 x 0.4 x 0.4 cm, volume 0.06 mL. Previously: 0.4 x 0.4 x 0.3 cm, volume 0.02 mL. Nodule characteristics: Composition: Spongiform (0). ACR TI-RADS total points: 0 Previous: 3 ACR TI-RADS category: 1 Previous: 3 Significant change in size (>/= 20% in 2 dimensions and minimal increase of 2 mm or 50% or greater increase in volume): Yes Change in features: No Change in ACR TI-RADS risk category: No NODES: No lymphadenopathy is seen in the tissue surrounding the thyroid gland. US/US thyroid IMPRESSION: 1. Right thyroid nodules are seen, as detailed. No specific thyroid ultrasound follow-up is recommended. 2. There is increased thyroid vascularity, which can be associated with thyroiditis. ACR TI-RADS RECOMMENDATION REFERENCE: Ultrasound-guided fine-needle aspiration, follow up ultrasound, no further followup. * TR1 (0 point) and TR2 (2 points): No FNA or followup * TR3 (3 points): FNA if more than or equal to 2.5 cm in maximum dimension, follow up ultrasound in 1, 3 and 5 years if 1.5 to 2.4 cm in maximum dimension. * TR4 (4-6 points): FNA if more than or equal to 1.5 cm in maximum dimension, follow up ultrasound in 1, 2, 3 and 5 years if 1 to 1.4 cm in maximum dimension. * TR5 (more than or equal to 7 points): FNA if more than or equal to 1 cm in maximum dimension, follow up ultrasound every year for 5 years if 0.5 to 0.9 cm in maximum dimension. * TR3, TR4 or TR5 nodules that are below the size threshold for follow up receive no followup.
[2023-07-14 12:33] LABS: Alanine Aminotransferase 37 U/L (0-31); Alkaline Phosphatase 75 U/L (39-117); Anion Gap 13 (12-20); Aspartate Amino Transferase 40 U/L (5-31); Bilirubin Total 0.5 mg/dL (0.0-1.0); Blood Urea Nitrogen 10 mg/dL (9-16); Calcium 9.5 mg/dL (8.4-10.2); Carbon Dioxide 25 mmol/L (22-29); Chloride 104 mmol/L (96-108); Estimated Glomerular Filt Rate > 60; Glucose Random 97 mg/dL (60-115); Phosphorus 3.3 mg/dL (2.7-4.5); Potassium 4.2 mmol/L (3.3-5.1); Sodium 138 mmol/L (135-145); Total Protein 6.8 g/dL (6.5-8.0)
[2023-07-14 12:35] LABS: Free T4 (Free Thyroxine) 1.02 ng/dL (0.71-1.85); Thyroid Stimulating Hormone 0.86 uIU/mL (0.32-4.0); Vitamin D 25-OH Total 50.5 ng/mL (>30)
[2023-07-15 18:13] LABS: Calcium (PTHI) 9.5 mg/dL (8.6-10.4); PTHI 50 pg/mL (16-77)
[2023-07-19 20:13] LABS: Alkaline Phosphatase Bone 9.1 mcg/L (5.6-29.0)
== END 2023-07-14 08:51 | disposition home or self-care (01) ==
LOC: HO.HMGCX 08:50
PROVIDERS: PCP Internal Medicine; Visit Provider Internal Medicine
DX: E04.1 Nontoxic single thyroid nodule (principal); M81.0 Age-related osteoporosis without current pathological fracture; E55.9 Vitamin D deficiency, unspecified
CPT/HCPCS: 36415; 76536; 80053; 82306; 83970; 84075; 84100; 84439; 84443

== ENCOUNTER 2023-10-27 09:32 | Outpatient (AMB) | payer MEDICARE, SELFPAY ==
--- NOTE | 2023-10-27 09:34 | MHC.OFFVIS ---
Intake Vital Signs 10/27/23 09:36 Height 5 ft 5.16 in Weight 130 lb 15.273 oz BMI 21.7 BP 100/78 Blood Pressure Location Rt brachial Position Sitting Pulse 64 Pulse Source Pulse Oximeter Intake Visit Reasons: F/U Osteoporosis-confirmed Intake Note: Patient presents today for Osteoporosis follow up, last seen by Dr. Krishnan on 01/22/2023. 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 The patient last saw Dr. Krishnan on 01/22/2023 Completed a biochemical assessment after our initial visit which revealed Calcium higher than expected 04/02/2021 Calcium 9.9, Albumin 4.3, PTH 43, Vitamin D 38.8. Her 24 hour urine Calcium was mid normal. She had labs repeated 07/18/2021 with Calcium 9.7, Albumin 4.4, PTH 43 and Vitamin D 43.5. 24 hour urine calcium was WNL. US of the thyroid was read as multiple bilateral subcentimeter thyroid nodules, but review of images does appear to show that what was read as a 0.4 cm RMP thyroid nodule is in fact a parathyroid adenoma. We discussed the possibility of normocalcemic normohormonal hyperparathyroidism. Decision was made to attempt medical management with alendronate for 1 year and then repeat her BMD to assess for improvements. She is now 6 months into treatment and is tolerating this well. First diagnosed in 2020 with her first bone density. She was starte don Fosamax in early 2021 and remains on this weekly now. BMD shows significant gains. Has 2 servings of dietary calcium per day in the form of yogurt, cheese and almond milk. Does not take a Calcium supplement. Takes 2000 IU of Vitamin D daily. Denies ever using PPI, anticoagulant, antiepileptic or glucocorticoid medication. Does weight bearing exercise 7 days per week in the form of walking and horse back riding. Fracture history: Prior avulsion fracture of the ankle, 1 year ago. Had a prior compression fracture of T12 in 2000. Height loss: 1 inch [employer] history: Menarche was age 13. Menses was always irregular due to PCOS and Endometriosis. . Menopause was age 54. Does have a personal history of Kidney stones, just one episode 10-12 years ago. Has a family history of Osteoporosis in her Mother with nephrolithiasis in her Father. UTD on dental cleanings and sees dentist every 6 months. No planned upcoming dental work or extractions. DXA: 12/02/2022 FINDINGS: AP SPINE L1-L4: Current: BMD 0.952 g/cm2, Z-score -0.1, T-score -1.9, osteopenia, 3.8% increase from previous, 18.3% decrease from baseline (<5% change is not significant). Prior: BMD 0.917 g/cm2. Baseline: BMD 1.165 g/cm2. LEFT FEMUR, NECK: Current: BMD 0.683 g/cm2, Z-score -0.9, T-score -2.6, osteoporosis. Prior: BMD 0.628 g/cm2. Baseline: BMD 0.827 g/cm2. LEFT FEMUR, TOTAL: Current: BMD 0.627 g/cm2, Z-score -1.6, T-score -3.0, osteoporosis, 5.6% increase from previous, 18.4% decrease from baseline (<5% change is not significant). Prior: BMD 0.594 g/cm2. Baseline: BMD 0.768 g/cm2. Thyroid US: 08/28/2022 Right Thyroid Lobe: 5.1 x 1.6 x 2.0 cm, volume 8.2 mL. Previously 5.7 x 1.7 x 1.4 cm, volume 7.1 mL. Parenchyma: The gland echotexture is homogeneous. Thyroid vascularity is normal. Left Thyroid Lobe: 4.7 x 1.6 x 1.3 cm, volume 5.3 mL. Previously 4.8 x 1.7 x 1.6 cm, volume 6. mL. Parenchyma: The gland echotexture is homogeneous. Thyroid vascularity is normal. Isthmus: 0.3 cm in maximum AP dimension. Previously 0.3 cm. Estimated total number of nodules greater than or equal to 1 cm: 0. Back Filler Operator nodules are described as follows: 1.? Location: Right isthmus. ?? ? Size: 0.6 x 0.6 x 0.3 cm, volume 0.05 mL. ?? ? Previously: 0.7 x 0.3 x 0.5 cm, volume 0.06 mL. ?? ? Nodule characteristics: ?? ? Composition: Solid (2). ?? ? Echogenicity: Hyperechoic (1). ?? ? Shape: Not taller than wide (0). ?? ? Margins: Smooth (0). ?? ? Echogenic Foci: None (0).? ACR TI-RADS total points: 3 Previous: 0 ?? ? ACR TI-RADS category: 3 Previous: 1 ? Significant change in size (>/= 20% in 2 dimensions and minimal increase of 2 mm or 50% or greater increase in volume): None ?? ? Change in features: None ?? ? Change in ACR TI-RADS risk category: None 2.? Location: Right mid/lateral. ?? ? Size: 0.3 x 0.2 x 0.3 cm, volume 0.09 mL. ?? ? Previously: 0.4 x 0.3 x 0.3 cm, volume 0.02 mL. ?? ? Nodule characteristics: ?? ? Composition: Spongiform (0). ?? ? Echogenicity: Anechoic (0). ?? ? Shape: Not taller than wide (0). ?? ? Margins: Smooth (0). ?? ? Echogenic Foci: None (0).? ACR TI-RADS total points: 0 Previous: 0 ?? ? ACR TI-RADS category: 1 Previous: 1 ? Significant change in size (>/= 20% in 2 dimensions and minimal increase of 2 mm or 50% or greater increase in volume): None ?? ? Change in features: None ?? ? Change in ACR TI-RADS risk category: None 3.? Location: Right inferior medial. ?? ? Size: 0.4 x 0.4 x 0.3 cm, volume 0.02 mL. ?? ? Previously: 0.5 x 0.4 x 0.4 cm, volume 0.04 mL. ?? ? Nodule characteristics: ?? ? Composition: Solid (2). ?? ? Echogenicity: Hyperechoic (1). ?? ? Shape: Not taller than wide (0). ?? ? Margins: Ill-defined (0). ?? ? Echogenic Foci: None (0).? ACR TI-RADS total points: 3 Previous: 3 ?? ? ACR TI-RADS category: 3 Previous: 3 ? Significant change in size (>/= 20% in 2 dimensions and minimal increase of 2 mm or 50% or greater increase in volume): None ?? ? Change in features: None ?? ? Change in ACR TI-RADS risk category: None NODES: No lymphadenopathy is seen in the tissue surrounding the thyroid gland. Labs: Laboratory Tests 11/05/22 11/05/22 11/11/22 10:00 10:00 07:00 Sodium 139 Potassium 4.4 Creatinine 0.73 Estimated GFR > 60 N-Telopeptide X-li nked 16 25-OH Vitamin D To lily 31.3 TSH 0.79 Free T4 1.00 PTH Intact 73 Calcium (PTH Intac t) 9.9 PFSH Medical History Ankle fracture Cataract, right Essential hypertension Family history of thoracic aortic aneurysm Fuchs' corneal dystrophy of right eye Menopause Mild mitral regurgitation Multinodular thyroid Osteoporosis Recurrent cold sores Seasonal allergies Thyroid nodule Vitamin D deficiency Surgical History History of colposcopy Hx of colonoscopy History of ovarian cyst History of foot surgery Family History Father HTN (hypertension) CVD (cardiovascular disease) Nephrolithiasis Mother HTN (hypertension) Osteoporosis Sister Thoracic aortic aneurysm Paternal Uncle Mental health disorder Social History Household Members: Spouse Housing: House Alcohol intake: current Alcohol intake frequency: a few times a month Alcohol type: wine Patient Tobacco Use Status: Former Tobacco user Years Smoked: 3 yrs e-Cigarette/Vaping Use: Never Used Current occupational status: retired Cognitive needs: No Hearing needs: No Vision needs: No Physical Exam Vital Signs: Last Vital Signs Pulse 64 10/27/23 09:36 BP 100/78 10/27/23 09:36 BMI result Body Mass Index 21.7 Assessment & Plan Assessment & Plan (1) Osteoporosis: Code(s): M81.0 - Age-related osteoporosis without current pathological fracture Plan: This is a 68-year-old white female with a history of osteoporosis with negative secondary workup. She is currently on alendronate and had increases in bone density on recent bone density. However she does have residual significant osteoporosis. The plan is to talk to the patient about options including continue the alendronate versus a trial of anabolic therapy considering high risk of fracture. After careful discussion with the patient, we decided to transition to Prolia 60 mg q.6 months for about 2-3 years time and then can transition back to bisphosphonate Orders: Orders Calcium 3 Weeks M81.0 - Age-related osteoporosis without current pathological fracture Albumin Level 3 Weeks M81.0 - Age-related osteoporosis without current pathological fracture Basic Metabolic Panel 2 Weeks M81.0 - Age-related osteoporosis without current pathological fracture Coding Level of Care Code Est Pt Level 3 (11204) Diagnoses Osteoporosis M81.0
[2023-10-27 09:36] VITALS: BP 100/78; PULSE 64; BMI 21.7
== END 2023-10-27 10:19 | disposition home or self-care (01) ==
PROVIDERS: PCP Internal Medicine; Visit Provider Internal Medicine Endocrinology, Diabetes & Metabolism
DX: M81.0 Age-related osteoporosis without current pathological fracture (principal)
CPT/HCPCS: 99213

== ENCOUNTER → 2023-10-27 09:32 | Outpatient (BNVA) | payer MEDICARE, SELFPAY | PROVIDERS: Visit Provider Internal Medicine Endocrinology, Diabetes & Metabolism | DX: M81.0 Age-related osteoporosis without current pathological fracture (principal); Z79.899 Other long term (current) drug therapy | CPT/HCPCS: 99212 ==

== ENCOUNTER 2023-12-09 07:09 | Outpatient (REF) | payer MEDICARE, SELFPAY ==
[2023-12-09 11:39] LABS: Calcium 9.9 mg/dL (8.4-10.2)
[2023-12-09 11:42] LABS: Albumin Level 4.1 g/dL (3.5-5.0); Anion Gap 11 (12-20); Blood Urea Nitrogen 8 mg/dL (9-16); Calcium 9.9 mg/dL (8.4-10.2); Carbon Dioxide 27 mmol/L (22-29); Chloride 104 mmol/L (96-108); Estimated Glomerular Filt Rate > 60; Glucose Random 86 mg/dL (60-115); Potassium 4.2 mmol/L (3.3-5.1); Sodium 138 mmol/L (135-145)
== END 2023-12-09 07:10 | disposition home or self-care (01) ==
LOC: HO.HMGCLDS 07:09
PROVIDERS: PCP Internal Medicine; Visit Provider Internal Medicine Endocrinology, Diabetes & Metabolism
DX: Z13.89 Encounter for screening for other disorder (principal)
CPT/HCPCS: 36415; 80048; 82040; 82310

== ENCOUNTER 2023-12-09 09:47 | Outpatient (REF) | payer MEDICARE, SELFPAY | END 2023-12-09 09:48 | disposition home or self-care (01) | LOC: HO.MAMMO 09:47 | PROVIDERS: PCP Internal Medicine; Visit Provider Internal Medicine | DX: Z12.31 Encounter for screening mammogram for malignant neoplasm of breast (principal) | CPT/HCPCS: 36415; 77063; 77067; 80048; 82040; 82310 ==

== ENCOUNTER → 2023-12-09 10:00 | Outpatient (BNV) | payer MEDICARE, SELFPAY | PROVIDERS: PCP Internal Medicine; Visit Provider Radiology Diagnostic Radiology | DX: Z12.31 Encounter for screening mammogram for malignant neoplasm of breast (principal) | CPT/HCPCS: 77063; 77067 ==

== ENCOUNTER 2024-01-12 08:30 | Outpatient (AMB) | payer MEDICARE, SELFPAY ==
--- NOTE | 2024-01-12 08:44 | AM.OFFVISNUR ---
Intake Intake Visit Reasons: Prolia Allergies Codeine Sulfate Allergy (Unknown, Uncoded 10/27/23 09:38) GI upset, hives lobster Adverse Reaction (Uncoded 10/27/23 09:38) hives Office Meds Prolia 60 mg/mL subcutaneous syringe Performing Provider: Carlos Cummins MD [place] [facility] [place] Administered by: Audrey Watkins RN on 01/12/24 08:44 Dose Route Admin Location Dispensed Lot Number Expiration Date [facility] [employer] 60 mg subcut 1 mL [id number] 12/26/25 [facility] Coding Assessment & Plan Assessment & Plan Orders: Orders AMB Denosumab Injection Patient Supplied Today M81.0 - Age-related osteoporosis without current pathological fracture Medications: New Prolia (denosumab) 60 mg subcut ONCE 1 mL 0RF NS M81.0 - Age-related osteoporosis without current pathological fracture
== END 2024-01-12 08:46 | disposition home or self-care (01) ==
PROVIDERS: PCP Internal Medicine; Visit Provider Internal Medicine Endocrinology, Diabetes & Metabolism
DX: M81.0 Age-related osteoporosis without current pathological fracture (principal)

== ENCOUNTER → 2024-01-12 08:30 | Outpatient (BNVA) | payer MEDICARE, SELFPAY | PROVIDERS: PCP Internal Medicine; Visit Provider Internal Medicine Endocrinology, Diabetes & Metabolism | DX: M81.0 Age-related osteoporosis without current pathological fracture (principal) | CPT/HCPCS: 96372; J0897 ==

== ENCOUNTER 2024-02-03 13:45 | Outpatient (AMB) | payer MEDICARE, SELFPAY ==
[2024-02-03 13:50] VITALS: BP 110/80; PULSE 74; O2SAT 94; BMI 21.7
--- NOTE | 2024-02-03 13:50 | MHC.OFFWIV ---
Intake Vital Signs 02/03/24 13:50 Height 5 ft 5 in Weight 130 lb 2 oz BMI 21.7 BP 110/80 Blood Pressure Location Rt brachial Position Sitting Pulse 74 Pulse Source Pulse Oximeter Pulse Oximetry (%) 94 Oxygen Delivery Method Room Air Intake Visit Reasons: EP ?UTI Patient Tobacco Use Status: Former Tobacco user Allergies Codeine Sulfate Allergy (Unknown, Uncoded 10/27/23 09:38) GI upset, hives lobster Adverse Reaction (Uncoded 10/27/23 09:38) hives Medication List - Last Reconciled 02/03/24 by Preeti Villa MD acyclovir 400 mg PO DAILY cholecalciferol (vitamin D3) 50 mcg PO DAILY denosumab (Prolia) 60 mg subcut [id number] ketorolac 0.5% drps ophthalmic (eye) lactobacillus combination no.9 (Adult 50 Plus Probiotic) 4,000 mmu cells PO DAILY lisinopril 2.5 mg PO DAILY melatonin 5 mg PO ONCE Do you need a note to return to daycare/school/sports/work: No HPI EP ?UTI HPI Details Patient is 68-year-old female came in today to be evaluated for possible bladder infection Symptoms started last night Having dysuria and frequency of urination There is no fever no chills no nausea vomiting no abdominal pain no back pain UA shows 3+ leuk esterase 3+ blood Patient has never had urinary tract infection before I am treating her with Levaquin 500 mg once a day for 5 days Patient is to push fluids She has a follow-up appointment with the primary care in 5 days She will have urine repeated at that visit. [facility] Medical History Family history of thoracic aortic aneurysm Thyroid nodule Multinodular thyroid Vitamin D deficiency Osteoporosis Cataract, right Fuchs' corneal dystrophy of right eye Ankle fracture Menopause Mild mitral regurgitation Seasonal allergies Recurrent cold sores Essential hypertension Surgical History History of colposcopy Hx of colonoscopy History of ovarian cyst History of foot surgery Family History Father HTN (hypertension) CVD (cardiovascular disease) Nephrolithiasis Mother HTN (hypertension) Osteoporosis Sister Thoracic aortic aneurysm Paternal Uncle Mental health disorder Social History Household Members: Spouse Housing: House Alcohol intake: current Alcohol intake frequency: a few times a month Alcohol type: wine Patient Tobacco Use Status: Former Tobacco user Years Smoked: 3 yrs e-Cigarette/Vaping Use: Never Used Current occupational status: retired Cognitive needs: No Hearing needs: No Vision needs: No Review of Systems Const All systems reviewed & are unremarkable except as noted in HPI and below Physical Exam Vital Signs: Last Vital Signs Pulse 74 02/03/24 13:50 BP 110/80 02/03/24 13:50 Pulse Ox 94 02/03/24 13:50 Oxygen Delivery Method Room Air 02/03/24 13:50 BMI result Body Mass Index 21.7 Const General: no acute distress Orientation/consciousness: patient oriented x3 Eyes General: appearance normal, both eyes and all related structures Resp Effort & Inspection: normal respiratory effort and able to speak in complete sentences Auscultation: clear to auscultation bilaterally Neuro General: patient oriented x3 Psych Mental Status: mental status grossly normal Results AMB Urinalysis, Automated UA Leukoctes 500 Lesvia/uL Last Edit by Suzie Ferro MA on 02/03/24 14:06 UA Nitrite Negative Last Edit by Suzie Ferro MA on 02/03/24 14:06 UA Urobilinogen 0.2 mg/dL Last Edit by Suzie Ferro MA on 02/03/24 14:06 UA Protein 300 mg/dL Last Edit by Suzie Ferro MA on 02/03/24 14:06 UA pH 6.0 Last Edit by Suzie Ferro MA on 02/03/24 14:06 UA Blood 200 Itz/uL Last Edit by Suzie Ferro MA on 02/03/24 14:06 UA Specific [place] 1.005 Last Edit by Suzie Ferro MA on 02/03/24 14:06 UA Ketone Negative Last Edit by Suzie Ferro MA on 02/03/24 14:06 UA Bilirubin 0 mg/dL Last Edit by Suzie Ferro MA on 02/03/24 14:06 UA Glucose 0 mg/dL Last Edit by Suzie Ferro MA on 02/03/24 14:06 Results Reviewed Results Reviewed: Laboratory Last Values Urine pH (Auto) 6.0 02/03/24 14:04 Specific [place] (Auto) 1.005 02/03/24 14:04 Urine Protein (Auto) 300 mg/dL 02/03/24 14:04 Glucose (UA)(Auto) 0 mg/dL 02/03/24 14:04 Urine Ketones (Auto) Negative 02/03/24 14:04 Urine Blood (Auto) 200 Itz/uL 02/03/24 14:04 Urine Nitrite (Auto) Negative 02/03/24 14:04 Urine Bilirubin (Auto) 0 mg/dL 02/03/24 14:04 Urine Urobilinogen (Auto) 0.2 mg/dL 02/03/24 14:04 Leukocyte Esterase (Auto) 500 Lesvia/uL 02/03/24 14:04 Assessment & Plan Assessment & Plan (1) Acute cystitis with hematuria: Code(s): N30.01 - Acute cystitis with hematuria Plan Patient is 68-year-old female came in today to be evaluated for possible bladder infection Symptoms started last night Having dysuria and frequency of urination There is no fever no chills no nausea vomiting no abdominal pain no back pain UA shows 3+ leuk esterase 3+ blood Patient has never had urinary tract infection before I am treating her with Levaquin 500 mg once a day for 5 days Patient is to push fluids She has a follow-up appointment with the primary care in 5 days She will have urine repeated at that visit. Orders: Orders Urine Culture Today N30.01 - Acute cystitis with hematuria Medications: New levofloxacin 500 mg PO DAILY 5 tabs 0RF 5 days Coding Level of Care Code Est Pt Level 3 (22392) Diagnoses Acute cystitis with hematuria N30.01
== END 2024-02-03 14:27 | disposition home or self-care (01) ==
PROVIDERS: PCP Internal Medicine; Visit Provider Internal Medicine
DX: N30.01 Acute cystitis with hematuria (principal)
CPT/HCPCS: 99213

== ENCOUNTER 2024-02-03 19:41 | Outpatient (REF) | payer MEDICARE, SELFPAY | END 2024-02-03 19:42 | disposition home or self-care (01) | LOC: HO.LNP 19:41 | PROVIDERS: Visit Provider Internal Medicine | DX: N30.01 Acute cystitis with hematuria (principal) | CPT/HCPCS: 87086; 87088; 87186 ==

== ENCOUNTER 2024-02-08 08:26 | Outpatient (AMB) | payer MEDICARE, SELFPAY ==
[2024-02-08 08:46] VITALS: BP 94/60; PULSE 75; O2SAT 95; BMI 21.1
--- NOTE | 2024-02-08 08:46 | MHC.PC.OV ---
Vital Signs 02/08/24 08:46 Height 5 ft 5 in Weight 127 lb BMI 21.1 BP 94/60 Blood Pressure Location Rt brachial Position Sitting Pulse 75 Pulse Source Pulse Oximeter Pulse Oximetry (%) 95 Oxygen Delivery Method Room Air Intake Visit Reasons: PE Intake Note: Pt is here today for her PE: mammogram 12/09/23, bone density scan 12/02/22: colonoscopy 11/10/18 Allergies Codeine Sulfate Allergy (Unknown, Uncoded 02/09/24 00:44) GI upset, hives lobster Adverse Reaction (Uncoded 02/09/24 00:44) hives Medication List - Last Reconciled 02/09/24 by Queta Christensen MD acyclovir 400 mg PO DAILY denosumab (Prolia) 60 mg subcut [id number] ketorolac 0.5% drps ophthalmic (eye) lactobacillus combination no.9 (Adult 50 Plus Probiotic) 4,000 mmu cells PO DAILY lisinopril 2.5 mg PO DAILY melatonin 5 mg PO ONCE nitrofurantoin monohyd/m-cryst 100 mg (Macrobid) 100 mg PO Q12H 7 days Tobacco use date assessed: 02/08/24 Fall risk assessment: No Falls in past year Last assessed Fall Risk: 02/08/24 Dental Screening Dental Screen Date: 02/08/24 Did you have a dental visit in the last 12 months?: Yes Did you have a dental problem in the last 6 months where you did not have access to dental care?: Yes Was dental information given to patient?: Patient has dentist HPI PE HPI Details 68-year-old lady with osteoporosis currently started on Prolia by Dr. 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 Blood pressure however noted to be running on the lower end of normal, has not been having any headaches, no chest pain or lightheadedness, no shortness a breath, compliant with healthy eating habits and getting regular exercise. Thinking of stopping lisinopril low-dose at 2.5 mg daily. She has history of recurrent cold sores, takes acyclovir as needed. She is up-to-date with her screening mammogram, and bone density scan, she is up-to-date with her cervical cancer screening had it done by Dr. Jorge in 2021, which came back showing presence of atrophic vaginitis. She is up-to-date with her screening colonoscopy done by Dr. Granger, showing normal findings, repeat colonoscopy due again in 2028. Recently seen at the walk-in clinic and treated for acute urinary tract infection with Macrobid, with resolution of symptom. [facility] Medical History Family history of thoracic aortic aneurysm Thyroid nodule Multinodular thyroid Vitamin D deficiency Osteoporosis Cataract, right Fuchs' corneal dystrophy of right eye Ankle fracture Menopause Mild mitral regurgitation Seasonal allergies Recurrent cold sores Essential hypertension Surgical History History of colposcopy Hx of colonoscopy History of ovarian cyst History of foot surgery Family History Father HTN (hypertension) CVD (cardiovascular disease) Nephrolithiasis Mother HTN (hypertension) Osteoporosis Sister Thoracic aortic aneurysm Paternal Uncle Mental health disorder Social History Household Members: Spouse Housing: House Alcohol intake: current Alcohol intake frequency: a few times a month Alcohol type: wine Patient Tobacco Use Status: Former Tobacco user Years Smoked: 3 yrs e-Cigarette/Vaping Use: Never Used Current occupational status: retired Cognitive needs: No Hearing needs: No Vision needs: No Questionnaire PHQ-9 Over the last 2 weeks, how often have you been bothered by any of the following problems? 1. Little interest or pleasure in doing things: not at all 2. Feeling down, depressed, or hopeless: not at all 3. Trouble falling or staying asleep, or sleeping too much: not at all 4. Feeling tired or having little energy: not at all 5. Poor appetite or overeating: not at all 6. Feeling bad about yourself - or that you are a failure or have let yourself or your family down: not at all 7. Trouble concentrating on things, such as reading the newspaper or watching television: not at all 8. Moving or speaking so slowly that other people could have noticed. Or the opposite - being so fidgety or restless that you have been moving around a lot more than usual: not at all 9. Thoughts that you would be better off or of hurting yourself in some way: not at all Total score: 0 Depression Screening Interpretation: Negative Depression Screening Done: Yes 56486 - PHQ-9 Billing: Yes Source: Developed by Drs. Carlos Desir, Laury Blue, Edison Rodriguez and colleagues, with an educational mariaa from [employer]. Thrive Questionnaire Date Thrive assessed: 02/08/24 I am a: Patient What is your living situation today?: I have a steady place to live Within the past 12 months, did the food you bought not last and you didn't have the money to get more?: Never true Within the past 12 months, did you worry whether your food would run out before you got money to buy more?: Never true Do you have trouble paying for medicines?: No Do you have trouble getting transportation to medical appointments?: No Do you have trouble paying your heating and electricity bill?: No Do you have trouble taking care of your child, family member or friend?: No Do you have trouble with day-to-day activities such as bathing, preparing meals, shopping, managing finances, etc.?: No Are you currently unemployed and looking for a job?: No Are you interested in more education?: No THRIVE Score: 0 AUDIT C Alcohol Use Questionnaire (AUDIT-C) 1. How often do you have a drink containing alcohol?: Monthly or less 2. How many drinks containing alcohol do you have on a typical day when you are drinking?: 1 or 2 3. How often do you have six or more drinks on one occasion?: Never Total Score: 1 PREETI-7 AMB Questionnaire PREETI-7 Date PREETI - 7 assessed: 02/08/24 Feeling nervous, anxious, or on edge: 0 = Not at all Not being able to stop or control worryin = Not at all Worrying too much about different things: 0 = Not at all Trouble relaxin = Not at all Being so restless that it is hard to sit still: 0 = Not at all Becoming easily annoyed or irritable: 0 = Not at all Feeling afraid as if something awful might happen: 0 = Not at all Total PREETI-7 score (0-4 normal; 5-9 mild; 10-14 moderate; 15-21 severe): 0 Source: Developed by Drs. Carlos Desir, Laury Blue, Edison Rodriguez and colleagues, with an educational mariaa from [employer]. Review of Systems Const Denies body aches, Denies fatigue, Denies headache(s), Denies malaise and Denies weakness Eyes Details: Currently being seen at [facility] yearly for follow-up on her Fuch's dystrophy and routine eye exam ENT Reports no additional complaints and Denies headache(s) Card Denies chest pain, Denies irregular heart rhythm and Denies dyspnea Resp Denies cough and Denies dyspnea GI Denies abdominal pain, Denies melena, Denies bloating, Denies change in bowel habits, Denies dyspepsia and Denies heartburn Reports no additional complaints Musc Reports no additional complaints Skin/Breast Denies rash Neuro Reports no additional complaints, Denies headache(s) and Denies weakness Psych Reports no additional complaints Endo Denies fatigue Amos/Lymph Reports no additional complaints Aller/Immun Reports no additional complaints Physical exam (Primary Care) Vital Signs: Last Vital Signs Pulse 75 02/08/24 08:46 BP 94/60 02/08/24 08:46 Pulse Ox 95 02/08/24 08:46 Oxygen Delivery Method Room Air 02/08/24 08:46 BMI result Body Mass Index 21.1 Tobacco/Smoking Status: Tobacco use Status Tobacco use date assessed 02/08/24 02/08/24 08:48 Patient Tobacco Use Status Former Tobacco user 02/08/24 08:48 e-Cigarette/Vaping Use Never Used 02/08/24 08:48 PHQ-9: PHQ-9 Score PHQ-9: Total score 0 02/08/24 09:09 Depression Screening Interpretation: Negative Thrive Assessment: Date of Thrive Assessment Date Thrive assessed 02/08/24 02/08/24 08:59 Const Other: Alert oriented x3, no acute distress noted, ambulatory with normal gait [facility] Head: Yes normocephalic Ears: hearing grossly normal bilaterally, external ears normal, TM's normal bilaterally and EAC's normal General nose exam: Normal external nose present Face and sinus: Yes face symmetric Mouth: Normal oral and palatal mucosa present, oropharynx normal and moist mucous membranes Eyes General: appearance normal, both eyes and all related structures Neck Neck: Yes full ROM, Yes no lymphadenopathy and Yes supple Chest Breast/axilla inspection: normal inspection of the breasts Breast/axilla palpation: normal palpation of the breasts Resp Auscultation: clear to auscultation bilaterally Cardio Other: S1-S2 present regular rate and rhythm GI Other: Normal bowel sounds, soft, nontender, no mass palpated General: Yes no CVA tenderness Back/Spine/Pelvis Back: no CVA tenderness Skin General skin exam: no rashes or lesions noted Neuro General: gait normal, moves all extremities, Normal light touch and pain sensation, no focal motor deficits and CN's II-XI intact bilaterally Extrem General: Yes full ROM, Yes no joint enlargement, Yes no clubbing, cyanosis or edema, Yes no pedal edema, Yes no calf tenderness and Yes normal gait Psych Appearance: grossly normal and well kempt Mental Status: mental status grossly normal Speech and movement: Normal speech and movement present Affect: normal affect Attitude: cooperative Thought process: Normal thought process present Thought content: Normal thought content present Results Reviewed Results Reviewed: Name: Dia Schreiber Age/Sex: 68/F : 1955 Unit#: [id number] Attend Dr: Carlos Cummins MD Re12/09/23 Status: DEP REF Location: [facility] Disch: SPEC : [id number] WARD: 12/09/23 STATUS: COMP REQ : [id number] RECD: 12/09/23-[address]: Carlos Cummins MD COMP: 12/09/23-114 ENTERED: 12/09/23-[address] [facility] [address]: Queta Christensen MD ORDERED: BMP, Alb Test Result Flag Reference Sodium 138 135-145 mmol/L Potassium 4.2 3.3-5.1 mmol/L CL 104 96-108 mmol/L CO2 27 22-29 mmol/L Gap 11 L 12-20 BUN 8 L 9-16 mg/dL Creat 0.68 0.5-1.4 mg/dL EGFR > 60 NOTE: For -Romanian individuals, multiply the result by 1.210. Chronic Kidney Disease: Estimated GFR < 60 mL/min/1.73m2 Severe Kidney Disease: Estimated GFR < 15 mL/min/1.73m2 Glucose, Random 86 60-115 mg/dL CA 9.9 8.4-10.2 mg/dL Alb 4.1 3.5-5.0 g/dL Assessment and Plan Assessment & Plan (1) Annual visit for general adult medical examination with abnormal findings: Code(s): Z00.01 - Encounter for general adult medical examination with abnormal findings Plan: Will check appropriate labs. Last glucose and electrolytes and renal function done September 2023 were within normal limits. Continue Regular dental visit every 6 months and regular eye exams, . Take adequate calcium in diet and vitamin-D 3 at 2000 IU per cap once a day, in addition to weight-bearing exercises to help maintain good muscle tone and weight control. Instructed to do self-breast exam, and continue with yearly mammogram, currently up-to-date. She had a bone density done last year and was started on Prolia by Dr. Cummins, has an appointment for follow-up with him later this year she is up-to-date with all her vaccines. She is also up-to-date on her colonoscopy, not due for a repeat until 2028 (2) Essential hypertension: Code(s): I10 - Essential (primary) hypertension Plan: Blood pressure running low, advised to hold off on lisinopril, and check blood pressure at home, call with readings after a week , blood pressure less than 130/ 80 (3) Recurrent cold sores: Code(s): B00.1 - Herpesviral vesicular dermatitis Plan: Takes acyclovir 400 mg as needed for outbreaks of cold sore (4) Vitamin D deficiency: Code(s): E55.9 - Vitamin D deficiency, unspecified Plan: Will check vitamin-D level (5) History of urinary tract infection: Code(s): Z87.440 - Personal history of urinary (tract) infections Plan: Repeat another urine with culture and sensitivity as needed Orders: Orders Lipid Panel 02/08/24 B00.1 - Herpesviral vesicular dermatitis, E55.9 - Vitamin D deficiency, unspecified, I10 - Essential (primary) hypertension, J30.2 - Other seasonal allergic rhinitis, M81.0 - Age-related osteoporosis without current pathological fracture, Z00.01 - Encounter for general adult medical examination with abnormal findings, Z78.0 - Asymptomatic menopausal state, Z87.440 - Personal history of urinary (tract) infections Vitamin D 25-OH Total 02/08/24 B00.1 - Herpesviral vesicular dermatitis, E55.9 - Vitamin D deficiency, unspecified, I10 - Essential (primary) hypertension, J30.2 - Other seasonal allergic rhinitis, M81.0 - Age-related osteoporosis without current pathological fracture, Z00.01 - Encounter for general adult medical examination with abnormal findings, Z78.0 - Asymptomatic menopausal state, Z87.440 - Personal history of urinary (tract) infections Alanine Aminotransferase 02/08/24 B00.1 - Herpesviral vesicular dermatitis, E55.9 - Vitamin D deficiency, unspecified, I10 - Essential (primary) hypertension, J30.2 - Other seasonal allergic rhinitis, M81.0 - Age-related osteoporosis without current pathological fracture, Z00.01 - Encounter for general adult medical examination with abnormal findings, Z78.0 - Asymptomatic menopausal state, Z87.440 - Personal history of urinary (tract) infections Aspartate Amino Transferase 02/08/24 B00.1 - Herpesviral vesicular dermatitis, E55.9 - Vitamin D deficiency, unspecified, I10 - Essential (primary) hypertension, J30.2 - Other seasonal allergic rhinitis, M81.0 - Age-related osteoporosis without current pathological fracture, Z00.01 - Encounter for general adult medical examination with abnormal findings, Z78.0 - Asymptomatic menopausal state, Z87.440 - Personal history of urinary (tract) infections UA CC w/rflx Micro + Cult 02/08/24 B00.1 - Herpesviral vesicular dermatitis, E55.9 - Vitamin D deficiency, unspecified, I10 - Essential (primary) hypertension, J30.2 - Other seasonal allergic rhinitis, M81.0 - Age-related osteoporosis without current pathological fracture, Z00.01 - Encounter for general adult medical examination with abnormal findings, Z78.0 - Asymptomatic menopausal state, Z87.440 - Personal history of urinary (tract) infections Coding Level of Care Code Est Pt Prev Care >65y(97834) Diagnoses Annual visit for general adult medical examination with abnormal findings Z00.01 Essential hypertension I10 Recurrent cold sores B00.1 Vitamin D deficiency E55.9 History of urinary tract infection Z87.440
== END 2024-02-08 10:12 | disposition home or self-care (01) ==
PROVIDERS: PCP Internal Medicine; Visit Provider Internal Medicine
DX: Z00.00 Encounter for general adult medical examination without abnormal findings (principal); I10 Essential (primary) hypertension; B00.1 Herpesviral vesicular dermatitis; E55.9 Vitamin D deficiency, unspecified; Z87.440 Personal history of urinary (tract) infections
CPT/HCPCS: 99397

== ENCOUNTER 2024-02-16 07:48 | Outpatient (REF) | payer MEDICARE, SELFPAY ==
[2024-02-16 10:29] LABS: Appearance Urine Clear; Color Urine Yellow; Glucose Urine UA Negative (Negative); Leukocyte Esterase Urine Trace (Negative); Nitrite Urine Negative (Negative); PH 5.5 (5.0-9.0); Specific Gravity - Urine 1.015 (1.005-1.025); UMIC TRIGGER UACC YES; Urine Blood Negative (Negative); Urine Ketones Trace mg/dL (Negative); Urine Protein Negative (Neg-Trace)
[2024-02-16 10:34] LABS: Bacteria Urine None Seen (None Seen); RBC Urine 0-2 /HPF (0-2); Squamous Epithelial Cell Urine 0-2 /HPF (0-2); UACC Culture Trigger YES
[2024-02-16 11:20] LABS: Alanine Aminotransferase 32 U/L (0-31); Aspartate Amino Transferase 39 U/L (5-31); Cholesterol 159 mg/dL (<200); HDL Cholesterol 66 mg/dL (>40); LDL Cholesterol Calculated 80 mg/dL (<100); Triglycerides 68 mg/dL (<150); Vitamin D 25-OH Total 48.4 ng/mL (>30)
== END 2024-02-16 07:49 | disposition home or self-care (01) ==
LOC: HO.HMGCLDS 07:48
PROVIDERS: PCP Internal Medicine; Visit Provider Internal Medicine
DX: Z00.01 Encounter for general adult medical examination with abnormal findings (principal); E55.9 Vitamin D deficiency, unspecified; M81.0 Age-related osteoporosis without current pathological fracture; J30.2 Other seasonal allergic rhinitis; B00.1 Herpesviral vesicular dermatitis; I10 Essential (primary) hypertension; R82.90 Unspecified abnormal findings in urine; Z78.0 Asymptomatic menopausal state; Z87.440 Personal history of urinary (tract) infections
CPT/HCPCS: 36415; 80061; 81001; 82306; 84450; 84460; 87086

== ENCOUNTER 2024-07-12 08:56 | Outpatient (REF) | payer MEDICARE, SELFPAY ==
[2024-07-12 10:18] LABS: Albumin Level 4.1 g/dL (3.5-5.0); Anion Gap 9 (12-20); Blood Urea Nitrogen 12 mg/dL (9-16); Carbon Dioxide 30 mmol/L (22-29); Chloride 104 mmol/L (96-108); Estimated Glomerular Filt Rate > 60; Glucose Random 84 mg/dL (60-115); Potassium 4.1 mmol/L (3.3-5.1); Sodium 139 mmol/L (135-145)
== END 2024-07-12 08:57 | disposition home or self-care (01) ==
LOC: HO.HMGCLDS 08:56
PROVIDERS: PCP Internal Medicine; Visit Provider Internal Medicine Endocrinology, Diabetes & Metabolism
DX: M81.0 Age-related osteoporosis without current pathological fracture (principal)
CPT/HCPCS: 36415; 80048; 82040

== ENCOUNTER 2024-07-26 08:53 | Outpatient (AMB) | payer MEDICARE, SELFPAY ==
--- NOTE | 2024-07-26 09:08 | AM.OFFVISNUR ---
Intake Visit Reasons: Prolia Allergies Codeine Sulfate Allergy (Unknown, Uncoded 02/09/24 00:44) GI upset, hives lobster Adverse Reaction (Uncoded 02/09/24 00:44) hives Office Meds Prolia 60 mg/mL subcutaneous syringe Performing Provider: Carlos Cummins MD Performing [place] [facility] Administered by: Audrey Watkins RN on 07/26/24 09:08 Dose Route Admin Location Dispensed Lot Number Expiration Date [facility] [employer] 60 mg subcut left upper arm 1 mL [id number] 01/25/27 06042-187-45 [facility] Comments: Consent form signed by patient. Pt tolerated injection well. Pt denies any problems with previous injections. Assessment & Plan Assessment & Plan Orders: Orders AMB Denosumab Injection Patient Supplied Today M81.0 - Age-related osteoporosis without current pathological fracture Medications: New Prolia (denosumab) 60 mg subcut ONCE 1 mL 0RF NS M81.0 - Age-related osteoporosis without current pathological fracture
== END 2024-07-26 09:06 | disposition home or self-care (01) ==
LOC: HO.ENCR 08:53
PROVIDERS: PCP Internal Medicine
DX: M81.0 Age-related osteoporosis without current pathological fracture (principal)

== ENCOUNTER → 2024-07-26 08:53 | Outpatient (BNVA) | payer MEDICARE, SELFPAY | PROVIDERS: PCP Internal Medicine | DX: M81.0 Age-related osteoporosis without current pathological fracture (principal) | CPT/HCPCS: 96372; J0897 ==

== ENCOUNTER 2024-12-14 09:54 | Outpatient (REF) | payer MEDICARE, SELFPAY ==
--- OUTSIDE RECORDS SUMMARY | 2024-12-14 11:17 | XMS_ITS | Encounter Summary ---
Author Organization [facility] Address [address] [place] [address] Phone Care Team Providers Care Barrel Leveler Name Role Phone Steve Cohn DO Primary Care Provider [phone] Marcus Gaona MD Primary Care Provider Rema Monroe MD, MPH Unavailable [phone] Encounter Details Date Type Department Care Team (Late st Contact Info) Description 01/10/2016 Ancillary Orders [facility] [place] [address] [address] Kev Velazco MD [address] [place] [id number] [email or web address] Dizziness (Primary Dx); Headache, unspecified chronicity pattern; Syncope, unspecified Social History Tobacco Use Types Packs/Day Years Used Date Smoking Tobacco: Never Assessed Sex and Gender Information Value Date Recorded Sex Assigned at Not on file Gender Identity Not on file Sexual Orientation Not on file documented as of this encounter Plan of Treatment Not on file documented as of this encounter Visit Diagnoses Diagnosis Dizziness- Primary Dizziness and giddiness Headache, unspecified chronicity pattern Syncope, unspecified documented in this encounter Care Teams Barrel Leveler Relationship Specialty Start Date End Date Steve Cohn DO [address] [place] [id number] PCP - General Internal Medicine 11/05/15 03/27/19 Marcus Gaona MD [address] [place] [address] PCP - General 03/28/19 Rema Monroe MD, MPH [address] [place] [id number] [email or web address] Insurance Assigned Provider 12/02/19 01/04/20 documented as of this encounter Additional Source Comments The information contained in this document represents components of the legal health record. It is not the complete legal health record.[facility]
--- OUTSIDE RECORDS SUMMARY | 2024-12-14 11:17 | XMS_ITS | Clinical Summary ---
Author Organization [facility] Address [address] [facility] [address] [place] [address] Care Team Providers Care Mop Man Name Role Phone Queta Christensen MD Primary Care Provider [phone] Queta Christensen MD Unavailable [phone] Allergies Active Allergy Reactions Criticality Noted Date Comments Codeine Hives,Nausea And Vomiting Medium 02/22/2016 Medications Medication Sig Dispensed Refills Start Date End Date Status acyclovir (Zovirax) 400 mg tablet Take 400 mg by mouth in the morning. 07/02/2022 Active alendronate (Fosamax) 70 mg tablet Take 70 mg by mouth 1 (one) time per week. 07/30/2022 Active diclofenac (Voltaren) 1 % topical gel Apply 1 application topically in the morning, at noon, in the evening, and at bedtime. 07/24/2022 Active lisinopril 2.5 mg tablet Take 2.5 mg by mouth in the morning. 08/28/2022 Active calcium carbonate-vitamin D3 500 mg-5 mcg (200 unit) tablet Take 1 tablet by mouth in the morning. Active lactobacillus (Culturelle) 10 billion cell capsule Take 1 capsule by mouth in the morning. Active sodium chloride (Gale 128) 2 % ophthalmic solution 1 drop in the morning and at bedtime. Active sodium chloride 5 % ophthalmic ointment Apply 1 application to both eyes at bedtime. Active Active Problems No known active problems Social History Tobacco Use Types Packs/Day Years Used Date Smoking Tobacco: Former Cigarettes Tobacco Cessation:Counseling Given: Not Answered Sex and Gender Information Value Date Recorded Sex Assigned at Not on file Gender Identity Not on file Sexual Orientation Not on file Job Start Date Occupation Industry Not on file Not on file Not on file Plan of Treatment Health Maintenance Due Date Last Done Comments Bone Density Scan 1955 CT Colonography 1955 Colonoscopy 1955 Colorectal Cancer Screening 1955 FIT-DNA 1955 FIT 1955 FOBT 1955 Sigmoidoscopy 1955 Hepatitis C Screening 1974 DTaP/Tdap/Td Vaccines (1 - Tdap) 1975 Mammogram 1996 Zoster Vaccines (1 of 2) 2006 Medicare Annual Wellness (AWV) 08/28/2022 COVID-19 Vaccine ( - 2023-2 5 season) 2024 Influenza Vaccine (#1) 2024 Depression Screening 09/28/2024 Pneumococcal Vaccine: 50+ Years Completed HIB Vaccines Aged Out No longer eligi ble based on patient's age to complete this topic HPV Vaccines Aged Out No longer eligi ble based on patient's age to complete this topic Hepatitis A Vaccines Aged Out No long er eligible based on patient's age to complete this topic Hepatitis B Vaccines Aged Out No long er eligible based on patient's age to complete this topic IPV Vaccines Aged Out No longer eligi ble based on patient's age to complete this topic Meningococcal B Vaccine Aged Out No l onger eligible based on patient's age to complete this topic Meningococcal Vaccine Aged Out No jose carole eligible based on patient's age to complete this topic Rotavirus Vaccines Aged Out No longer eligible based on patient's age to complete this topic Advance Directives Documents on File Type Date Recorded Patient Massage Coordinator Expl anation Health Care Proxy 11/15/2020 3:25 PM Conve rsion - External Healthcare Proxy ([facility] Rocio LANG) Care Teams Mop Man Relationship Specialty Start Date End Date Queta Christensen MD [address] [place] [address] PCP - General 11/01/21 Queta Christensen MD [address] [place] [address] 11/01/21
--- OUTSIDE RECORDS SUMMARY | 2024-12-14 11:17 | XMS_ITS | Encounter Summary ---
Author Organization [facility] Address [address] [place] [address] Phone Care Team Providers Care Egg Caser Name Role Phone Steve Cohn DO Primary Care Provider [phone] Marcus Gaona MD Primary Care Provider Rema Monroe MD, MPH Unavailable [phone] Encounter Details Date Type Department Care Team (Late st Contact Info) Description 01/10/2016 Ancillary Orders [facility] Neurosurgery [address] [address] Kev Velazco MD [address] [place] [id number] [email or web address] Dizziness (Primary Dx); Headache, unspecified chronicity pattern; [...] unspecified documented in this encounter Care Teams Egg Caser Relationship Specialty Start Date End Date Steve Cohn DO [address] [place] [id number] PCP - General Internal Medicine 11/05/15 03/27/19 Marcus Gaona MD [address] [place] [address] PCP - General 03/28/19 Rema Monroe MD, MPH [address] [place] [phone] [email or web address] Insurance Assigned Provider 12/02/19 01/04/20 documented as of this encounter Additional Source Comments The information contained in this document represents components of the legal health record. It is not the complete legal health record.[facility]
--- OUTSIDE RECORDS SUMMARY | 2024-12-14 11:17 | XMS_ITS | Clinical Summary ---
Author Organization [facility] Address [address] [place] [address] Care Team Providers Care Atomic Spectroscopist Name Role Phone Community, Pcp Primary Care Provider Unavailabl e Allergies Active Allergy Reactions Severity Noted Date Comments Codeine Hives/Urticaria,Nausea and Vomiting Medium 02/02/2018 Medications Medication Sig Dispensed Refills Start Date End Date Status lisinopril (PRINIVIL,ZESTRIL) 2.5 MG tablet Take 2.5 mg by mouth daily. 0 Active Probiotic Product (PROBIOTIC OR) Take 1 Tab by mouth daily. 0 Active aspirin 325 MG tablet Take 325 mg by mouth daily. 0 Active Social History Tobacco Use Types Packs/Day Years Used Date Smoking Tobacco: Former Smokeless Tobacco: Never Alcohol Use Standard Drinks/Week Comments Yes 0 (1 standard drink = 0.6 oz pur e alcohol) occasionally Sex Assigned at Date Recorded Not on file Last Filed Vital Signs Vital Sign Reading Time Taken Comments Blood Pressure 104/62 02/02/2018 11:26 AM EDT Pulse 68 02/02/2018 11:26 AM EDT Temperature - - Respiratory Rate 12 02/02/2018 11:2 6 AM EDT Oxygen Saturation - - Inhaled Oxygen Concentration - - Weight 59.8 kg (131 lb 12.8 oz) 018 11:26 AM EDT Height 167.6 cm (5' 6 ) 02/02/2018 11:2 6 AM EDT Body Mass Index 21.27 02/02/2018 11:26 AM EDT Plan of Treatment Health Maintenance Due Date Last Done Comments Covid-19 Vaccine (#1) 03/05/1956 HEPATITIS C SCREENING 1974 DTAP/TDAP/TD (1 - Tdap) 1975 CHOLESTEROL SCREENING 1976 MAMMOGRAM 1996 COLON CANCER SCREENING 2006 SHINGLES VACCINE (1 of 2) 2006 BONE DENSITY SCREENING 2021 PNEUMOCOCCAL VACCINE (1 - PCV) 2021 INFLUENZA (#1) 2024 BMI CHECK/ADVISE 09/28/2024 Care Teams Atomic Spectroscopist Relationship Specialty Start Date End Date Community, Pcp PCP - General Internal Medicine 12/17/17
--- OUTSIDE RECORDS SUMMARY | 2024-12-14 11:17 | XMS_ITS | Clinical Summary ---
Author Organization [facility] Address [address] [employer] [address] [address] Phone Care Team Providers Care Dinkey Operator Slate Name Role Phone Marcus Gaona MD Primary Care Provider Allergies Active Allergy Reactions Criticality Noted Date Comments Codeine Hives,Nausea And Vomiting Medium 02/22/2016 Medications Medication Sig Dispensed Refills Start Date End Date Status lisinopril (PRINIVIL,ZESTRIL) 2.5 MG tablet Take 2.5 mg by mouth daily. Active Lactobacillus acidophilus (PROBIOTIC ORAL) Take 1 tablet by mouth. Active aspirin 325 MG tablet Take 325 mg by mouth. Active lisinopril (PRINIVIL,ZESTRIL) 2.5 MG tablet Take 2.5 mg by mouth. Active Active Problems Problem Noted Date Diagnosed Date Visit for routine obgyn hospitalist physician exam 03/28/2019 Resolved Problems Problem Noted Date Diagnosed Date Resolved Date Vaginal atrophy 03/28/2019 03/28/2019 Family History Medical History Relation Comments Breast cancer Cousin Hypertension Mother Osteoporosis Mother Relation Status Comments Cousin Mother Social History Tobacco Use Types Packs/Day Years Used Date Smoking Tobacco: Former Smokeless Tobacco: Never Alcohol Use Standard Drinks/Week Comments Yes 0 (1 standard drink = 0.6 oz pur e alcohol) Education Answer Date Recorded Are you interested in more education? Not on ced e 01/23/2023 Are you concerned about learning? Not on file 01/23/2023 No 01/23/2023 No 01/23/2023 Digital Access Answer Date Recorded No 02/23/2023 No 02/23/2023 No 02/23/2023 Reliable internet access at home? Not on file 02/23/2023 Device with a working camera? Not on file Sex and Gender Information Value Date Recorded Sex Assigned at Not on file Gender Identity Not on file Sexual Orientation Not on file Last Filed Vital Signs Vital Sign Reading Time Taken Comments Blood Pressure 112/76 03/28/2019 9:47 AM EDT Pulse - - Temperature - - Respiratory Rate - - Oxygen Saturation - - Inhaled Oxygen Concentration - - Weight 59.4 kg (131 lb) 03/28/2019 9:47 AM EDT Height 163.2 cm (5' 4.25 ) 03/28/2019 9:47 AM ED T Body Mass Index 22.31 03/28/2019 9:47 AM EDT Plan of Treatment Health Maintenance Due Date Last Done Comments Adult Td,Tdap Booster 1955 CREATININE LEVEL 1956 LIPID PANEL 1956 POTASSIUM LEVEL 1956 DEPRESSION SCREENING 1968 SMOKING Hx and SMOKELESS TOB ACCO SCREENING 1969 HEPATITIS B SCREENING 1974 HEPATITIS C SCREENING 1974 MAMMOGRAM 1996 COLOGUARD 2001 COLONOSCOPY 2001 COLORECTAL CANCER SCREENING 2001 FIT TEST 2001 FOBT 2001 SIGMOIDOSCOPY 2001 VIRTUAL COLONOSCOPY 2001 PNEUMOCOCCAL VACCINES (50+ y ears) (1 of 1 - PCV) 2006 ZOSTER VACCINES (1 of 2) 2006 OSTEOPOROSIS SCREENING INITI AL (ONE-TIME) 2021 PAP SMEAR 02/02/2023 02/02/2018 INFLUENZA VACCINE (#1) 2024 COVID-19 VACCINE (2 - 2023-2 5 season) 2024 01/21/2021 RSV VACCINE (1 - 1-dose 75+ series) 2031 HEPATITIS A VACCINES Aged Out No long er eligible based on patient's age to complete this topic HEPATITIS B VACCINES Aged Out No long er eligible based on patient's age to complete this topic HIB VACCINES Aged Out No longer eligi ble based on patient's age to complete this topic MENINGOCOCCAL VACCINES (ACWY) Aged Out No longer eligible based on patient's age to complete this topic Medical Devices Not on file Procedures Procedure Name Priority Date/Time Associated Diagnosis Comments PAP SMEAR FOR RESULT ENTRY ONLY Routine 02/02/2018 from Last 3 Months or Most Recently Relevant to Health Maintenance Results * PAP SMEAR FOR RESULT ENTRY ONLY (02/02/2018) Pap smear NIL, neg HPV Historical Provider MD HOWIE Antonio from Last 3 Months or Most Recently Relevant to Health Maintenance Fátimanier, Dia Personal/Family Self [address] [place] [address] Fátimanier, Dia Personal/Family Self [address] [place] [address] Fátimanier, Dia Personal/Family Self [address] [place] [address] Care Teams Dinkey Operator Slate Relationship Specialty Start Date End Date Marcus Gaona MD [address] [place] [address] PCP - General 03/28/19 Additional Source Comments The information contained in this document represents components of the legal health record. It is not the complete legal health record.[facility]
== END 2024-12-14 09:55 | disposition home or self-care (01) ==
LOC: HO.MAMMO 09:54
PROVIDERS: PCP Internal Medicine; Visit Provider Internal Medicine
DX: Z12.31 Encounter for screening mammogram for malignant neoplasm of breast (principal)
CPT/HCPCS: 77063; 77067

== ENCOUNTER → 2024-12-14 10:15 | Outpatient (BNV) | payer MEDICARE, SELFPAY | PROVIDERS: PCP Internal Medicine; Visit Provider Internal Medicine | DX: Z12.31 Encounter for screening mammogram for malignant neoplasm of breast (principal) | CPT/HCPCS: 77063; 77067 ==

== ENCOUNTER 2025-01-03 08:51 | Outpatient (REF) | payer MEDICARE, SELFPAY ==
--- OUTSIDE RECORDS SUMMARY | 2025-01-03 09:25 | XMS_ITS | Encounter Summary ---
Author Organization [facility] Address [address] [address] Phone Care Team Providers Care Clinical Psychologist Private Practice Name Role Phone SukiSteve Jose Guadalupe [place] Primary Care Provider [phone]- [phone] Marcus Gaona MD Primary Care Provider Rema Monroe MD, MPH Unavailable [phone]- [phone] Reason for Referral * MRI/CAT Scan - Closed Specialty Diagnoses / Procedures Referred By Contac t Referred To Contact Radiology Diagnoses Dizziness Headache, unspecified chronicity pattern Syncope, unspecified Procedures CT Angio Head CT Head CT Angio Head Kev Velazco MD [address] [place], [place] [address] [address] Email: [email or web address] Bhavik Carlos, PT [address] [place] [address] Referral ID Status Reason Start Date Expiration Date Visits Re quested Visits Authorized [id number] Closed 12/24/2015 02/01/2016 1 1 Encounter Details Date Type Department Care Team (Late st Contact Info) Description 01/10/2016 Ancillary Orders [facility] Neuro[place] [address] [place] [address] [place] [address] Kev Velazco MD [address] [place], [place] [address] [place] [address] [email or web address] Dizziness (Primary Dx); Headache, unspecified chronicity pattern; Syncope, unspecified Social History Tobacco Use Types Packs/Day Years Used Date Smoking Tobacco: Never Assessed Sex and Gender Information Value Date Recorded Sex Assigned at Not on file Gender Identity Not on file Sexual Orientation Not on file documented as of this encounter Plan of Treatment Not on file documented as of this encounter Results * CT ANGIO HEAD WITH AND WITHOUT CONTRAST (01/10/2016 2:25 PM EDT) Anatomical Region Laterality Modality Neck Computed Tomogra phy 01/10/2016 3:20 PM EDT Impressions 01/10/2016 5:11 PM EDT IMPRESSION: No evidence of acute intracranial hemorrhage, infarction or mass lesion. 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 No evidence of intracranial aneurysm or vascular malformation. These findings were discussed with Dolly Nichols NP, at the time of interpretation, 01/10/2016 3:50 PM, who responded indicating the communication was understood. CAROTID STENOSIS REFERENCE: MILD = <50% stenosis. MODERATE = ??50-69% stenosis. SEVERE = ??70-89% stenosis. HAIRLINE/CRITICAL = 90-99% stenosis. OCCLUDED = 100% stenosis. Narrative 01/10/2016 5:11 PM EDT TECHNIQUE: CTA of the head, including non-contrast and post-contrast images, and image post-processing. Neck CTA with contrast and image post-processing. COMPARISON: Brain and cervical spine MRI 12/04/2015. FINDINGS: HEAD CT: There is no evidence of acute intracranial hemorrhage, infarction or intracranial mass lesion. 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 There are multiple small hypodense foci in the bilateral cerebral white matter that correspond to prominent perivascular spaces on the prior brain MRI. The ventricles, sulci and cisterns are within normal limits in size and configuration. There is stable prominence of the pituitary gland. There is partial opacification of the right mastoid air cells, unchanged. The bones and extracranial soft tissues are unremarkable. NECK CTA: There is a two-vessel, left-sided aortic arch with common origin of the left common carotid artery and brachiocephalic artery. There is no appreciable stenosis involving the brachiocephalic artery or proximal subclavian arteries. The common carotid arteries appear normal bilaterally. There is irregular dilatation of the distal right cervical internal carotid artery at the skull base with a focal outpouching projecting medially that measures approximately 13 mm (SI) x 6 mm (AP) and appears similar compared to the prior cervical spine MRI of 12/04/2015. The cervical segments of the vertebral arteries appear normal bilaterally. Distal internal carotid artery diameter was used as the denominator for carotid stenosis measurement. There is biapical pleural/parenchymal scarring. The visualized lung apices are otherwise clear. The thyroid gland is normal. There is a large dorsal extradural fluid collection extending from the level of C6-T3, which results in anterior displacement of the thecal sac and is better assessed on the prior spine MRI of 12/04/2015. HEAD CTA: No intracranial arterial stenosis, aneurysm, or other lesion is identified. The intracranial internal carotid arteries and the anterior, middle and posterior cerebral arteries appear normal. The intracranial vertebral arteries and the basilar artery appear normal. There is a large right posterior communicating artery with a hypoplastic right P1 segment. The left posterior communicating artery is not well visualized. The anterior communicating artery appears normal. The major intracranial venous structures appear normal, without evidence of thrombosis. Procedure Note Bayron Mariano MD, PhD - 01/10/2016 TECHNIQUE: CTA of the head, including non-contrast and post-contrastimages, and image post-processing. Neck CTA with contrast and image post-processing. COMPARISON: Brain and cervical spine MRI 12/04/2015. FINDINGS: HEAD CT: There is no evidence of acute intracranial hemorrhage, infarction or intracranial mass lesion. The extensive superficial siderosis noted on theprior brain MRI of 12/04/2015 is not well visualized by CT. There are multiple small hypodense foci in the bilateral cerebral whitematter that correspond to prominent perivascular spaces on the prior brain MRI. The ventricles, sulci and cisterns are within normal limits in size and configuration. There is stable prominence of the pituitary gland. There is partial opacification of the right mastoid air cells,unchanged. The bones and extracranial soft tissues are unremarkable. NECK CTA: There is a two-vessel, left-sided aortic arch with common origin of theleft common carotid artery and brachiocephalic artery. There is noappreciable stenosis involving the brachiocephalic artery or proximal subclavianarteries. The common carotid arteries appear normal bilaterally. There is irregular dilatation of the distal right cervical internalcarotid artery at the skull base with a focal outpouching projecting mediallythat measures approximately 13 mm (SI) x 6 mm (AP) and appears similar comparedto the prior cervical spine MRI of 12/04/2015. The cervical segments of the vertebral arteries appear normalbilaterally. Distal internal carotid artery diameter was used as the denominator forcarotid stenosis measurement. There is biapical pleural/parenchymal scarring. The visualized lung apicesare otherwise clear. The thyroid gland is normal. There is a large dorsal extradural fluid collection extending from thelevel of C6-T3, which results in anterior displacement of the thecal sac and isbetter assessed on the prior spine MRI of 12/04/2015. HEAD CTA: No intracranial arterial stenosis, aneurysm, or other lesion isidentified. The intracranial internal carotid arteries and the anterior, middle and posterior cerebral arteries appear normal. The intracranial vertebral arteries and the basilar artery appearnormal. There is a large right posterior communicating artery with a hypoplasticright P1 segment. The left posterior communicating artery is not wellvisualized. The anterior communicating artery appears normal. The major intracranial venous structures appear normal, without evidenceof thrombosis. IMPRESSION: IMPRESSION: No evidence of acute intracranial hemorrhage, infarction or mass lesion. 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 No evidence of intracranial aneurysm or vascular malformation. These findings were discussed with Dolly Nichols NP, at the time of interpretation, 01/10/2016 3:50 PM, who responded indicating thecommunication was understood. CAROTID STENOSIS REFERENCE: MILD = <50% stenosis. MODERATE = 50-69% stenosis. SEVERE = 70-89% stenosis. HAIRLINE/CRITICAL = 90-99% stenosis. OCCLUDED = 100% stenosis. 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 Dizziness- Primary Dizziness and giddiness Headache, unspecified chronicity pattern Syncope, unspecified documented in this encounter Care Teams Clinical Psychologist Private Practice Relationship Specialty Start Date End Date Steve Cohn DO [address] [place] [address] PCP - General Internal Medicine 11/05/15 03/27/19 Marcus Gaona MD [address] [place] [address] PCP - General 03/28/19 Rema Monroe MD, MPH 15 [facility] [address] [place] [address] [email or web address] Insurance Assigned Provider 12/02/19 01/04/20 documented as of this encounter Additional Source Comments The information contained in this document represents components of the legal health record. It is not the complete legal health record.[facility]
--- OUTSIDE RECORDS SUMMARY | 2025-01-03 09:25 | XMS_ITS | Clinical Summary ---
Author Organization [facility] Address [address] [facility] [address] [place] [address] Care Team Providers Care Professional Engineer Name Role Phone Queta Christensen MD Primary Care Provider [phone] Queta Christensen MD Unavailable Allergies Active Allergy Reactions Criticality Noted Date [...] Medicare Annual Wellness (AWV) 08/28/2022 COVID-19 Vaccine (2023-2 5 season) 2024 Depression Screening 09/28/2024 Influenza Vaccine (Season Ended) 2025 Pneumococcal Vaccine: 50+ Years Completed HIB Vaccines [...] Documents on File Type Date Recorded Patient Card Seller Expl anation Health Care Proxy 11/15/2020 3:25 PM Conve rsion - External Healthcare Proxy ([facility] Rocio LANG) Care Teams Professional Engineer Relationship Specialty Start Date End Date Queta Christensen MD [address] [place] [address] PCP - General 11/01/21 Queta Christensen MD [address] [place] [address] 11/01/21
--- OUTSIDE RECORDS SUMMARY | 2025-01-03 09:25 | XMS_ITS | Encounter Summary ---
Author Organization [facility] Address [address] [place] [address] Phone Care Team Providers Care Ic Designer Gate Arrays Name Role Phone Steve Cohn DO Primary Care Provider [phone] Marcus Gaona MD Primary Care Provider Rema Monroe MD, MPH Unavailable [phone]- [phone] Encounter Details Date Type Department Care Team (Late st Contact Info) Description 01/10/2016 Ancillary Orders [facility] Neurosurgery [address] [address] Kev Velazco MD [address] [place] [address] [email or web address] Dizziness (Primary Dx); Headache, unspecified [...] unspecified documented in this encounter Care Teams Ic Designer Gate Arrays Relationship Specialty Start Date End Date Steve Cohn DO [address] [place] [address] PCP - General Internal Medicine 11/05/15 03/27/19 Marcus Gaona MD [address] [place] [address] PCP - General 03/28/19 Rema Monroe MD, MPH [address] [place] [address] [email or web address] Insurance Assigned Provider 12/02/19 01/04/20 documented as of this encounter Additional Source Comments The information contained in this document represents components of the legal health record. It is not the complete legal health record.[facility]
--- OUTSIDE RECORDS SUMMARY | 2025-01-03 09:26 | XMS_ITS | Clinical Summary ---
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 It is not the complete legal health record.[facility]
--- OUTSIDE RECORDS SUMMARY | 2025-01-03 09:26 | XMS_ITS | Encounter Summary ---
Author Organization [facility] Address [address] [place] [address] Phone Care Team Providers Care Director Digital Analytics Name Role Phone Steve Cohn DO Primary Care Provider [phone] Marcus Gaona MD Primary Care Provider Rema Monroe MD, MPH Unavailable [phone]- [phone] Encounter Details Date Type Department Care Team (Late st Contact Info) Description 01/10/2016 Ancillary [place] [facility] [place] [place] [address] [address] Kev Velazco MD [address] [place] [address] [email or web address] Dizziness (Primary Dx); Headache, unspecified chronicity [...] unspecified documented in this encounter Care Teams Director Digital Analytics Relationship Specialty Start Date End Date Steve Cohn DO [address] [place] [address] PCP - General Internal Medicine 11/05/15 03/27/19 Marcus Gaona MD [address] [place] [address] PCP - General 03/28/19 Rema Monroe MD, MPH [address] [place] [address] [email or web address] Insurance Assigned Provider 12/02/19 01/04/20 documented as of this encounter Additional Source Comments The information contained in this document represents components of the legal health record. It is not the complete legal health record.[facility]
[2025-01-03 11:20] LABS: Albumin Level 4.3 g/dL (3.5-5.0); Calcium 9.5 mg/dL (8.4-10.2)
== END 2025-01-03 08:52 | disposition home or self-care (01) ==
LOC: HO.HMGCLDS 08:51
PROVIDERS: PCP Internal Medicine; Visit Provider Internal Medicine Endocrinology, Diabetes & Metabolism
DX: M81.0 Age-related osteoporosis without current pathological fracture (principal)
CPT/HCPCS: 36415; 82040; 82310

== ENCOUNTER 2025-01-18 06:48 | Outpatient (REF) | payer MEDICARE, SELFPAY ==
--- OUTSIDE RECORDS SUMMARY | 2025-01-18 06:51 | XMS_ITS | Encounter Summary ---
Author Organization [facility] Address [address] [facility] [address] [place] [address] Phone Care Team Providers Care General Matcher Name Role Phone Steve Cohn DO Primary Care Provider [phone] Marcus Gaona MD Primary Care Provider Rema Monroe MD, MPH Unavailable [phone]- [phone] Encounter Details Date Type Department Care Team (Late st Contact Info) Description 01/10/2016 Ancillary Orders [facility] [place] 55 [facility], 7th Floor, [address] [place] [address] Kev Velazco MD [address] [place], [place] [address] [place] [address] [email or web address] Dizziness (Primary Dx); Headache, unspecified chronicity [...] unspecified documented in this encounter Care Teams General Matcher Relationship Specialty Start Date End Date Steve Cohn DO [address] [place] [address] PCP - General Internal Medicine 2/8/16 6/30/19 Marcus Gaona MD [address] [place] [address] PCP - General 03/28/19 Rema Monroe MD, MPH [address] [address] [email or web address] Insurance Assigned Provider 12/02/19 01/04/20 documented as of this encounter Additional Source Comments The information contained in this document represents components of the legal health record. It is not the complete legal health record.[facility]
--- OUTSIDE RECORDS SUMMARY | 2025-01-18 06:51 | XMS_ITS | Clinical Summary ---
Author Organization [facility] Address [address] [place] [address] Care Team Providers Care Forensic Computer Examiner Name Role Phone Community, Pcp Primary Care [...] 2021 PNEUMOCOCCAL VACCINE (1 - PCV) 2021 BMI CHECK/ADVISE 09/28/2024 INFLUENZA (Season Ended) 2025 Care Teams Forensic Computer Examiner Relationship Specialty Start Date End Date Community, Pcp PCP - General Internal Medicine 12/17/17
--- OUTSIDE RECORDS SUMMARY | 2025-01-18 06:51 | XMS_ITS | Clinical Summary ---
Author Organization [facility] Address 800 [facility] [address] [place] [address] Care Team Providers Care Risk Investigator Name Role Phone Queta Christensen MD Primary Care Provider [phone] Queta Christensen MD Unavailable [phone] Allergies Active Allergy Reactions Criticality Noted Date Comments Codeine Hives,Nausea And Vomiting Medium 02/22/2016 Medications acyclovir (Zovirax) 400 mg tablet Take 400 mg by mouth in the morning. 2 Active alendronate (Fosamax) 70 mg tablet Take 70 mg by mouth 1 (one) time per week. 2 Active diclofenac (Voltaren) 1 % topical gel Apply 1 application topically in the morning, at noon, in the evening, and at bedtime. 2 Active lisinopril 2.5 mg tablet Take 2.5 mg by mouth in the morning. 2 Active calcium carbonate-vitam in D3 500 mg-5 mcg (200 unit) tablet [...] Former Cigarettes Tobacco Cessation:Counseling Given: Not Answered Comments Unknown Sex and Gender Information Value Date Recorded Sex Assigned at Not on file Legal Sex Female 4:20 AM EST Gender Identity Not on file Sexual Orientation Not on file Plan of Treatment Health [...] Vaccine ( - 2023-2 5 season) 2024 Depression Screening 09/28/2024 Influenza [...] on patient's age to complete this topic Insurance MEDICARE PART A AND B AARP SUPPLEMENT Advance Directives Documents on File Type Date Recorded Patient Director Payment Expl anation Health Care Proxy 11/15/2020 3:25 PM Conve rsion - External Healthcare Proxy ([facility] Rocio LANG) Care Teams Risk Investigator Relationship Specialty Start Date End Date Queta Christensen MD [address] [place] [address] PCP - General 11/01/21 Queta Christensen MD [address] [place] [address] 11/01/21
--- OUTSIDE RECORDS SUMMARY | 2025-01-18 06:51 | XMS_ITS | Encounter Summary ---
Author Organization [facility] Address [address] [facility] [address] [place] [address] Phone Care Team Providers Care Member Of The Legislative Council Name Role Phone Steve Cohn DO Primary Care Provider [phone]- [phone] Marcus Gaona MD Primary Care Provider Rema Monroe MD, MPH Unavailable [phone]- [phone] Encounter Details Date Type Department Care Team (Late st Contact Info) Description 01/10/2016 Ancillary Orders [facility] Neurosurgery 55 [facility], 7th Floor, [address] [place] [address] Kev Velazco MD [address] [place], [place] [address] [place] [address] [email or web address] Dizziness (Primary Dx); Headache, unspecified chronicity [...] unspecified documented in this encounter Care Teams Member Of The Legislative Council Relationship Specialty Start Date End Date Steve Cohn DO [address] [place] [address] PCP - General Internal Medicine 2/8/16 6/30/19 Marcus Gaona MD [address] [place] [address] PCP - General 03/28/19 Rema Monroe MD, MPH [address] [address] [email or web address] Insurance Assigned Provider 12/02/19 01/04/20 documented as of this encounter Additional Source Comments The information contained in this document represents components of the legal health record. It is not the complete legal health record.[facility]
--- OUTSIDE RECORDS SUMMARY | 2025-01-18 06:51 | XMS_ITS | Clinical Summary ---
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 It is not the complete legal health record.[facility]
[2025-01-18 07:47] LABS: Anion Gap 11 (12-20); Blood Urea Nitrogen 17 mg/dL (9-16); Calcium 9.7 mg/dL (8.4-10.2); Carbon Dioxide 26 mmol/L (22-29); Chloride 105 mmol/L (96-108); Estimated Glomerular Filt Rate > 60; Glucose Random 87 mg/dL (60-115); Potassium 4.4 mmol/L (3.3-5.1); Sodium 138 mmol/L (135-145)
[2025-01-18 08:55] LABS: Appearance Urine Clear; Color Urine Yellow; Glucose Urine UA Negative (Negative); Leukocyte Esterase Urine Negative (Negative); Nitrite Urine Negative (Negative); PH 6.5 (5.0-9.0); Specific Gravity - Urine 1.015 (1.005-1.025); Urine Blood Negative (Negative); Urine Ketones Negative (Negative); Urine Protein Negative (Neg-Trace)
== END 2025-01-18 06:49 | disposition home or self-care (01) ==
LOC: HO.LAB 06:48
PROVIDERS: PCP Internal Medicine; Visit Provider Internal Medicine Endocrinology, Diabetes & Metabolism
DX: Z00.01 Encounter for general adult medical examination with abnormal findings (principal); M81.0 Age-related osteoporosis without current pathological fracture; E55.9 Vitamin D deficiency, unspecified; J30.2 Other seasonal allergic rhinitis; B00.1 Herpesviral vesicular dermatitis; I10 Essential (primary) hypertension; Z78.0 Asymptomatic menopausal state; Z87.440 Personal history of urinary (tract) infections
CPT/HCPCS: 36415; 80048; 81003

== ENCOUNTER 2025-01-20 08:14 | Outpatient (AMB) | payer MEDICARE, SELFPAY ==
--- OUTSIDE RECORDS SUMMARY | 2025-01-20 08:19 | XMS_ITS | Encounter Summary ---
Author Organization [facility] Address [address] [facility] [address] [place] [address] Phone Care Team Providers Care Evaluation Specialist Name Role Phone Steve Cohn DO Primary Care Provider [phone] Marcus Gaona MD Primary Care Provider Rema Monroe MD, MPH Unavailable +1- [phone] Encounter Details Date Type Department Care Team (Late st Contact Info) Description 01/10/2016 Ancillary [place] [facility] [place] [address] [facility], 7th Floor, [address] [place] [address] Kev Velazco MD [address] [facility] [id number] [place] [address] [email or web address] [email or web address] Dizziness (Primary Dx); Headache, unspecified chronicity [...] unspecified documented in this encounter Care Teams Evaluation Specialist Relationship Specialty Start Date End Date Steve Cohn DO [address] [place] [address] PCP - General Internal Medicine 11/05/15 03/27/19 Marcus Gaona MD [address] [place] [address] PCP - General 03/28/19 Rema Monroe MD, MPH [address] [place] [address] [email or web address] Insurance Assigned Provider 12/02/19 01/04/20 documented as of this encounter Additional Source Comments The information contained in this document represents components of the legal health record. It is not the complete legal health record.[facility]
--- OUTSIDE RECORDS SUMMARY | 2025-01-20 08:19 | XMS_ITS | Clinical Summary ---
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 It is not the complete legal health record.[facility]
--- OUTSIDE RECORDS SUMMARY | 2025-01-20 08:19 | XMS_ITS | Clinical Summary ---
Author Organization [facility] Address [address] [facility] [address] [place] [address] Care Team Providers Care Crude Oil Treater Name Role Phone Queta Christensen MD Primary Care Provider [phone] Queta Christensen MD Unavailable Allergies Active Allergy [...] Documents on File Type Date Recorded Patient [place] Expl anation Health Care Proxy 11/15/2020 3:25 PM Conve rsion - External Healthcare Proxy ([facility] Rocio LANG) Care Teams Crude Oil Treater Relationship Specialty Start Date End Date Queta Christensen MD [address] [place] [address] PCP - General 11/01/21 Queta Christensen MD [address] [place] [address] 11/01/21
--- OUTSIDE RECORDS SUMMARY | 2025-01-20 08:19 | XMS_ITS | Encounter Summary ---
Author Organization [facility] Address [address] [facility] [address] [place] [address] Phone Care Team Providers Care Mixing Engineer Name Role Phone SukiSteve Primary Care Provider [phone] Marcus Gaona MD Primary Care Provider Rema Monroe MD, MPH Unavailable [phone]- [phone] Reason for Referral * MRI/CAT Scan - Closed Specialty Diagnoses / Procedures Referred By Contac t Referred To Contact Radiology Diagnoses Dizziness Headache, unspecified chronicity pattern Syncope, unspecified Procedures CT Angio Head CT Head CT Angio Head Kev Velazco MD [address] [place] [id number] [place] [address] Email: [email or web address] Bhavik Carlos, PT [address] [place] [address] Referral ID Status Reason Start Date Expiration Date Visits Re quested Visits Authorized [id number] Closed 12/24/2015 02/01/2016 1 1 Encounter Details Date Type Department Care Team (Late st Contact Info) Description 01/10/2016 Ancillary [place] [facility] [place] [address] [place] [address], 7th Floor, [address] [place] [address] Kev Velazco MD [address] [place] [address] [id number] [place] [address] [email or web address] Dizziness (Primary Dx); Headache, unspecified chronicity [...] unspecified documented in this encounter Care Teams Mixing Engineer Relationship Specialty Start Date End Date Steve Cohn DO [address] [place] [address] PCP - General Internal Medicine 11/05/15 03/27/19 Marcus Gaona MD [address] [place] [address] PCP - General 03/28/19 Rema Monroe MD, MPH [address] [facility] [address] [place] [address] [email or web address] Insurance Assigned Provider 12/02/19 01/04/20 documented as of this encounter Additional Source Comments The information contained in this document represents components of the legal health record. It is not the complete legal health record.[facility]
--- OUTSIDE RECORDS SUMMARY | 2025-01-20 08:19 | XMS_ITS | Encounter Summary ---
Author Organization [facility] Address [address] [facility] [place] [address] [place] [address] Phone Care Team Providers Care Rock Loader Name Role Phone Steve Cohn DO Primary Care Provider [phone] Marcus Gaona MD Primary Care Provider Rema Monroe MD, MPH Unavailable [phone]- [phone] Encounter Details Date Type Department Care Team (Late st Contact Info) Description 01/10/2016 Ancillary Orders [facility] [place] Neuro[place] [address] [facility], 7th Floor, [address] [place] [address] Kev Velazco MD [address] [employer] [employer] [id number] [place] [address] [email or web address] Dizziness (Primary Dx); Headache, unspecified chronicity pattern; [...] unspecified documented in this encounter Care Teams Rock Loader Relationship Specialty Start Date End Date Steve Cohn DO [address] [place] [address] PCP - General Internal Medicine 11/05/15 03/27/19 Marcus Gaona MD [address] [place] [address] PCP - General 03/28/19 Rema Monroe MD, MPH [address] [place] [address] [email or web address] Insurance Assigned Provider 12/02/19 01/04/20 documented as of this encounter Additional Source Comments The information contained in this document represents components of the legal health record. It is not the complete legal health record.[facility]
--- NOTE | 2025-01-20 08:32 | AM.OFFVISNUR ---
Intake Visit Reasons: prolia injection Allergies Codeine Sulfate Allergy (Unknown, Uncoded 02/09/24 00:44) GI upset, hives lobster Adverse Reaction (Uncoded 02/09/24 00:44) hives Office Meds Prolia 60 mg/mL subcutaneous syringe Performing Provider: Carlos Cummins MD [place] [facility] [place] Administered by: Zahida Urrutia RN on 01/20/25 08:32 Dose Route Admin Location Dispensed Lot Number Expiration Date [facility] Cryptologic Technician Operator/Analyst 60 mg subcut left upper arm 1 mL [id number] 03/27/27 32592-697-81 AMGEN Comments: Consent form signed. Patient tolerated injection well. Patient denies any problems with previous injections. Assessment & Plan Assessment & Plan Orders: Orders AMB Denosumab Injection Practice Supplied Today M81.0 - Age-related osteoporosis without current pathological fracture Medications: New Prolia (denosumab) 60 mg subcut ONCE 1 mL 0RF NS M81.0 - Age-related osteoporosis without current pathological fracture Coding
== END 2025-01-20 08:32 | disposition home or self-care (01) ==
LOC: HO.ENCR 08:15
PROVIDERS: PCP Internal Medicine
DX: M81.0 Age-related osteoporosis without current pathological fracture (principal)

== ENCOUNTER → 2025-01-20 08:14 | Outpatient (BNVA) | payer MEDICARE, SELFPAY | PROVIDERS: PCP Internal Medicine | DX: M81.0 Age-related osteoporosis without current pathological fracture (principal) | CPT/HCPCS: 96372; J0897 ==

== ENCOUNTER 2025-03-25 07:53 | Outpatient (REF) | payer MEDICARE, SELFPAY ==
[2025-03-25 11:19] LABS: Alanine Aminotransferase 25 U/L (0-31); Aspartate Amino Transferase 34 U/L (5-31); Cholesterol 198 mg/dL (<200); HDL Cholesterol 84 mg/dL (>40); LDL Cholesterol Calculated 101 mg/dL (<100); Triglycerides 69 mg/dL (<150)
== END 2025-03-25 07:54 | disposition home or self-care (01) ==
LOC: HO.HMGCLDS 07:53
PROVIDERS: PCP Internal Medicine; Visit Provider Internal Medicine
DX: I10 Essential (primary) hypertension (principal); Z13.220 Encounter for screening for lipoid disorders
CPT/HCPCS: 36415; 80061; 84450; 84460

== ENCOUNTER 2025-03-29 09:36 | Outpatient (AMB) | payer MEDICARE, SELFPAY ==
--- OUTSIDE RECORDS SUMMARY | 2025-03-29 09:57 | XMS_ITS | Clinical Summary ---
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
--- OUTSIDE RECORDS SUMMARY | 2025-03-29 09:57 | XMS_ITS | Patient Health Record ---
Author Organization [facility] Address [address] [place] [address] Care Team Providers Care Label Tacker Name Role Phone Sandee Hollis Primary Care Provider Carlos Hensley [phone] Allergies Allergen (clinical drug ingredient) Drug/Non Drug Allergy documented on EMR Reaction Allergy Type Onset Date Status codeine Codeine Sulfate Unknown Drug Allergy A ctive Reason For Referral No Information Medications Medication SIG (Take, Route, Fr equency, Duration) Notes Start Date End Date Status Lisinopril 2.5 MG 1 tablet Orally Once a day Active Probiotic - Orally Active Aspirin 325 MG 1 tablet Orally Once a day Active Immunizations Vaccine Route Administration Date Status Comme nts Influenza Unknown 07/29/2018 Administered Social History Tobacco Use: Social History Observation Description Date Details (start date - stop date) Never Smoker NA - NA Tobacco Use/Smoking Question Answer Notes Patient is a nonsmoker Alcohol Screen Question Answer Notes Did you have a drink contain ing alcohol in the past year? Yes How often did you have a dri nk containing alcohol in the past year? 2 to 4 times a month (2 points) How many drinks did you have on a typical day when you were drinking in the past year? 1 or 2 drinks (0 point) Points 2 Interpretation Negative Section Notes: Nonsmoker; no sig alcohol Problems Problem Type SNOMED Code ICD Code Onset Dates Problem Status W/U Status Risk Notes Problem [id number] Encounter for screening for malignant neoplasm of colon (Z12.11) Active confirmed Problem [id number] Preprocedural examination (Z01.818) Active confirmed Plan Of Treatment Future Test Test Name Order Date COLONOSCOPY 09/09/2018 Insurance Providers Payer Name Payer Address Payer Phone Subscriber Number Group Number Insured Name Patient Relationship to Insured Coverage Start Date Coverage End Date [facility] [employer] CLAIM[employer] [address] [place] [address] [id number] RONAL GUALLPA Self - patient is the insured Medical (General) History Medical History History ICD Code Hypertension Right-sided carotid artery aneurysm Denies SD,DM,CVA,Lung disease,renal dise ase Surgical History Surgery Date(Month/Year) Ovarian cyst surgery x 3 Tonsillectomy
--- OUTSIDE RECORDS SUMMARY | 2025-03-29 09:57 | XMS_ITS | Encounter Summary ---
Author Organization [facility] Address [address] [facility] [address] [place] [address] Phone Care Team Providers Care Neuroscience Specialist Name Role Phone Steve Cohn Primary Care Provider [phone] Marcus Gaona MD Primary Care Provider Rema Monroe MD, MPH Unavailable [phone]- [phone] Reason for Referral * MRI/CAT Scan - Closed Specialty Diagnoses / Procedures Referred By Contac t Referred To Contact Radiology Diagnoses Dizziness Headache, unspecified chronicity pattern Syncope, unspecified Procedures CT Angio Head CT Head CT Angio Head Kev Velazco MD Phone: tel: fax: mailto:[email or web address] Bhavik Carlos, PT [address] [place] [address] Referral ID Status Reason Start Date Expiration Date Visits Re quested Visits Authorized [id number] Closed 12/24/2015 02/01/2016 1 1 Encounter Details Date Type Department Care Team (Late st Contact Info) Description 01/10/2016 Ancillary Orders [facility] [place] [address] [place] [address], 7th Floor, [address] [place] [address] Kev Velazco MD [address] [place] [address] [address] [place] [address] (work) [email or web address] Dizziness (Primary Dx); Headache, unspecified chronicity pattern; Syncope, unspecified Social History Tobacco Use Types Packs/Day Years Used Date Smoking Tobacco: Never Assessed Comments Unknown Sex and Gender Information Value Date Recorded Sex Assigned at Not on file Legal Sex Female 9:44 AM EST Gender Identity Not on file [...] stenosis. 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 [place] [address] [email or web address] Insurance Assigned Provider 12/02/19 01/04/20 documented as of this encounter Additional Source Comments The information contained in this document represents components of the legal health record. It is not the complete legal health record.[facility]
--- NOTE | 2025-03-29 10:03 | A.OFFPC_ITS ---
Vital Signs 03/29/25 10:09 Height 5 ft 5.5 in Weight 125 lb BMI 20.5 BP 94/62 Blood Pressure Location Rt brachial Position Sitting Respiration 15 Pulse 60 Pulse Source Pulse Oximeter Temp 98.1 F Temp Source Oral Pulse Oximetry (%) 94 Oxygen Delivery Method Room Air Intake Visit Reasons: Annual PE Intake Note: Pt is here today for her PE: last mammogram 12/14/24, bone density scan 12/02/22, colonoscopy 11/10/18 Allergies Codeine Sulfate Allergy (Unknown, Uncoded 03/29/25 10:38) GI upset, hives lobster Adverse Reaction (Uncoded 03/29/25 10:38) hives Medication List - Last Reconciled 03/29/25 by Queta Christensen MD acyclovir 400 mg PO DAILY denosumab (Prolia) 60 mg subcut [id number] ketorolac 0.5% drps ophthalmic (eye) lactobacillus combination no.9 (Adult 50 Plus Probiotic) 4,000 mmu cells PO DAILY lisinopril 2.5 mg PO DAILY magnesium aspart,citrate,oxide mg PO melatonin 5 mg PO ONCE Tobacco use date assessed: 03/29/25 Fall risk assessment: No Falls in past year Last assessed Fall Risk: 03/29/25 Dental Screening Dental Screen Date: 03/29/25 Did you have a dental visit in the last 12 months?: Yes Did you have a dental problem in the last 6 months where you did not have access to dental care?: No Was dental information given to patient?: Patient has dentist HPI Annual PE HPI Details 69-year-old lady with multinodular thyro id, osteoporosis currently started on Prolia by Dr. 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 [facility] Medical History Family history of thoracic aortic aneurysm Thyroid nodule Multinodular thyroid Vitamin D deficiency Osteoporosis Cataract, right Fuchs' corneal dystrophy of right eye Ankle fracture Menopause Mild mitral regurgitation Seasonal allergies Recurrent cold sores Essential hypertension Surgical History History of colposcopy Hx of colonoscopy History of ovarian cyst History of foot surgery Family History Father HTN (hypertension) CVD (cardiovascular disease) Nephrolithiasis Mother HTN (hypertension) Osteoporosis Sister Thoracic aortic aneurysm Paternal Uncle Mental health disorder Social History Household Members: Spouse Housing: House Alcohol intake: current Alcohol intake frequency: a few times a month Alcohol type: wine Patient Tobacco Use Status: Former Tobacco user Years Smoked: 3 yrs e-Cigarette/Vaping Use: Never Used Current occupational status: retired Cognitive needs: No Hearing needs: No Vision needs: No Questionnaire PHQ-9 Over the last 2 weeks, how often have you been bothered by any of the following problems? 1. Little interest or pleasure in doing things: not at all 2. Feeling down, depressed, or hopeless: not at all 3. Trouble falling or staying asleep, or sleeping too much: not at all 4. Feeling tired or having little energy: not at all 5. Poor appetite or overeating: not at all 6. Feeling bad about yourself - or that you are a failure or have let yourself or your family down: not at all 7. Trouble concentrating on things, such as reading the newspaper or watching television: not at all 8. Moving or speaking so slowly that other people could have noticed. Or the op posite - being so fidgety or restless that you have been moving around a lot more than usual: not at all 9. Thoughts that you would be better off or of hurting yourself in some way: not at all Total score: 0 Depression Screening Interpretation: Negative Depression Screening Done: Yes 95855 - PHQ-9 Billing: Yes Source: Developed by Drs. Carlos Desir, Laury Blue, Edison Rodriguez and colleagues, with an educational mariaa from [employer] Thrive Questionnaire Date Thrive assessed: 03/22/25 I am a: Patient What is your living situation today?: I have a steady place to live Within the past 12 months, did the food you bought not last and you didn't have the money to get more?: Never true Within the past 12 months, did you worry whether your food would run out before you got money to buy more?: Never true Do you have trouble paying for medicines?: No Do you have trouble getting transportation to medical appointments?: No Do you have trouble paying your heating and electricity bill?: No Do you have trouble taking care of your child, family member or friend?: No Do you have trouble with day-to-day activities such as bathing, preparing meals, shopping, managing finances, etc.?: No Are you currently unemployed and looking for a job?: No Are you interested in more education?: No Please select the resources that you would like help with: None Currently or been in a relationship where the following occur: No concerns reported THRIVE Score: 0 AUDIT C Alcohol Use Questionnaire (AUDIT-C) 1. How often do you have a drink containing alcohol?: Monthly or less 2. How many drinks containing alcohol do you have on a typical day when you are drinking?: 1 or 2 3. How often do you have six or more drinks on one occasion?: Never Total Score: 1 PREETI-7 AMB Questionnaire PREETI-7 Date PREETI - 7 assessed: 02/08/24 Feeling nervous, anxious, or on edge: 0 = Not at all Not being able to stop or control worryin = Not at all Worrying too much about different things: 0 = Not at all Trouble relaxin = Not at all Being so restless that it is hard to sit still: 0 = Not at all Becoming easily annoyed or irritable: 0 = Not at all Feeling afraid as if something awful might happen: 0 = Not at all Total PREETI-7 score (0-4 normal; 5-9 mild; 10-14 moderate; 15-21 severe): 0 Source: Developed by Drs. Carlos Desir, Laury Blue, Edison Rodriguez and colleagues, with an educational mariaa from [employer] PREETI-7 Assessment Billing PREETI-7 Assessment Tool: PREETI-7 Assessment 38661 Review of Systems Const Denies body aches, Denies fatigue, Denies headache(s), Denies malaise and Denies weakness Eyes Details: Currently being seen at [facility] yearly for follow-up on her Fuch's dystrophy and routine eye exam ENT Reports no additional complaints and Denies headache(s) Card Denies chest pain, Denies irregular heart rhythm and Denies dyspnea Resp Denies cough and Denies dyspnea GI Denies abdominal pain, Denies melena, Denies bloating, Denies change in bowel habits, Denies dyspepsia and Denies heartburn Reports no additional complaints Musc Reports no additional complaints Skin/Breast Denies rash Neuro Reports no additional complaints, Denies headache(s) and Denies weakness Psych Reports no additional complaints Endo Denies fatigue Amos/Lymph Reports no additional complaints Aller/Immun Reports no additional complaints Physical exam (Primary Care) Vital Signs: Last Vital Signs Temp 98.1 F 03/29/25 10:09 Pulse 60 03/29/25 10:09 Resp 15 03/29/25 10:09 BP 94/62 03/29/25 10:09 Pulse Ox 94 03/29/25 10:09 Oxygen Delivery Method Room Air 03/29/25 10:09 BMI result Body Mass Index 20.5 Tobacco/Smoking Status: Tobacco use Status Tobacco use date assessed 03/29/25 03/29/25 10:06 Patient Tobacco Use Status Former Tobacco user 03/29/25 10:06 e-Cigarette/Vaping Use Never Used 03/29/25 10:06 PHQ-9: PHQ-9 Score PHQ-9: Total score 0 04/03/25 02:46 Depression Screening Interpretation: Negative Thrive Assessment: Date of Thrive Assessment Date Thrive assessed 03/22/25 03/29/25 10:06 Currently or been in a relationship where the following occur: No concerns reported Const Other: Alert oriented x3, no acute distress noted, ambulatory with normal gait [facility] Head: Yes normocephalic Ears: external ears normal, TM's normal bilaterally and EAC's normal General nose exam: Normal external nose present Face and sinus: Yes face symmetric Mouth: oropharynx normal and moist mucous membranes Eyes General: appearance normal, both eyes and all related structures Neck Neck: Yes full ROM, Yes no lymphadenopathy and Yes supple Chest Breast/axilla inspection: normal inspection of the breasts Breast/axilla palpation: normal palpation of the breasts Resp Auscultation: clear to auscultation bilaterally Cardio Other: S1-S2 present regular rate and rhythm GI Other: Normal bowel sounds, soft, nontender, no mass palpated General: Yes no CVA tenderness Back/Spine/Pelvis Back: no CVA tenderness Skin General skin exam: no rashes or lesions noted Neuro General: gait normal, moves all extremities, Normal light touch and pain sensation, no focal motor deficits and CN's II-XI intact bilaterally Extrem General: Yes full ROM, Yes no joint enlargement, Yes no clubbing, cyanosis or edema, Yes no pedal edema, Yes no calf tenderness and Yes normal gait Psych Appearance: grossly normal and well kempt Mental Status: mental status grossly normal Speech and movement: Normal speech and movement present Affect: normal affect Attitude: cooperative Thought process: Normal thought process present Thought content: Normal thought content present Results Reviewed Results Reviewed: Name: Dia Schreiber Age/Sex: 69/F : 1955 Unit#: [id number] Attend Dr: Queta Christensen MD Re03/25/25 Status: DEP [facility] Disch: SPEC : [id number] WARD: 03/25/25 STATUS: COMP REQ : [id number] RECD: 03/25/[address]: Queta Christensen MD COMP: 03/25/25 ENTERED: 03/25/[address]: ORDERED: AST, ALT, Lipid Panel Test Result Flag Reference AST (GOT) 34 H 5-31 U/L ALT (GPT) 25 0-31 U/L Triglyceride 69 <150 mg/dL Desirable Triglyceride: less than 150 mg/dL Borderline High Triglyceride 150-199 mg/dL High Triglyceride: 200-499 mg/dL Very High Triglyceride: greater than or equal to 5OO mg/dL Cholesterol 198 <200 mg/dL Desirable Cholesterol: less than 200 mg/dL Borderline High Cholesterol: 200-239 mg/dL High Cholesterol: greater than 239 mg/dL LDL Calculated 101 H <100 mg/dL Desirable LDL: less than 100 mg/dL Near Optimal/Above Optimal LDL: 110-129 mg/dL Borderline High LDL: 130-159 mg/dL High LDL: 160-189 mg/dL Very High LDL: greater than or equal to 190 mg/dL HDL 84 >40 mg/dL Desirable HDL: greater than 40 mg/dL Note: This HDL assay may give artificially low results in patients with liver disease. Name: Dia Schreiber Age/Sex: 69/F : 1955 Unit#: [id number] Attend Dr: Carlos Cummins MD Re01/18/25 Status: DEP [facility] Disch: SPEC : [id number] WARD: 01/18/25 STATUS: COMP REQ : [id number] RECD: 01/18/[address]: Carlos Cummins MD COMP: 01/18/25 ENTERED: 01/18/[address]: Queta Christensen MD ORDERED: BMP Test Result Flag Reference Sodium 138 135-145 mmol/L Potassium 4.4 3.3-5.1 mmol/L CL 105 96-108 mmol/L CO2 26 22-29 mmol/L Gap 11 L 12-20 BUN 17 H 9-16 mg/dL Creat 0.75 0.5-1.4 mg/dL eGFR > 60 Chronic Kidney Disease: Estimated GFR < 60 mL/min/1.73m2 Severe Kidney Disease: Estimated GFR < 15 mL/m in/1.73m2 Glucose, Random 87 60-115 mg/dL CA 9.7 8.4-10.2 mg/dL Coding Level of Care Code Est Pt Level 4 (63901) Diagnoses Annual visit for general adult medical examination with abnormal findings Z00.01 Essential hypertension I10 Thyroid nodule E04.1 Osteoporosis M81.0 Vitamin D deficiency E55.9 Fuchs' corneal dystrophy of right eye H18.511 Recurrent cold sores B00.1 Additional Codes PREETI-7 Assessment Billing - PREETI-7 Assessment Tool: PREETI-7 Assessment 76464 ([id number]) PHQ-9 - 10564 - PHQ-9 Billing: Yes ([id number]) Assessment & Plan Assessment & Plan (1) Annual visit for general adult medical examination with abnormal findings: Code(s): Z00.01 - Encounter for general adult medical examination with abnormal findings Plan: Fasting lab results reviewed with patient .continue with regular. dental visit every 6 months and regular eye exams, at least every 2 years. Take adequate calcium in diet and vitamin-D 3 at 2000 IU per cap once a day, in addition to weight-bearing exercises to help maintain good muscle tone and weight control. Instructed to do self-breast exam, and recommended to continue getting yearly mammogram. Immunization information provided: Yearly flu vaccine, shingles vaccine starting at age 50, at age 65 to start getting Prevnar 13 followed 1 year later by Pneumovax 23. Colonoscopy (2) Essential hypertension: Code(s): I10 - Essential (primary) hypertension Category: Medical Plan: Blood pressure at goal of less than 130/80. Continue with one 5 mg lisinopril daily Reinforced importance of following a low sodium diet, getting regular exercise, and lowering stress levels. (3) Thyroid nodule: Comment: Followed yearly with thyroid ultrasound ordered by endocrine Code(s): E04.1 - Nontoxic single thyroid nodule Category: Medical Plan: Followed with thyroid ultrasound by endocrine clinic (4) Osteoporosis: Code(s): M81.0 - Age-related osteoporosis without current pathological fracture Category: Medical Plan: Currently on Prolia, followed by endocrine clinic reminded to continue taking vitamin-D 3 supplements at least 2000 units daily and take adequate calcium from dietary sources, continue with regular weight-bearing exercise (5) Vitamin D deficiency: Code(s): E55.9 - Vitamin D deficiency, unspecified Category: Medical Plan: Advised to start taking [id number] vitamin-D 3 at 2000 units daily (6) Fuchs' corneal dystrophy of right eye: Comment: Followed at [facility] ophthalmology annually Code(s): H18.511 - Endothelial corneal dystrophy, right eye Category: Medical Plan: Followed at [facility] ophthalmology clinic (7) Recurrent cold sores: Code(s): 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
[2025-03-29 10:09] VITALS: BP 94/62; PULSE 60; RESP 15; TEMP 36.7; O2SAT 94; BMI 20.5
== END 2025-03-29 10:56 | disposition home or self-care (01) ==
LOC: HO.HMCC 09:37
PROVIDERS: PCP Internal Medicine; Visit Provider Internal Medicine
DX: Z00.01 Encounter for general adult medical examination with abnormal findings (principal); I10 Essential (primary) hypertension; E04.1 Nontoxic single thyroid nodule; M81.0 Age-related osteoporosis without current pathological fracture; E55.9 Vitamin D deficiency, unspecified; H18.511 Endothelial corneal dystrophy, right eye; B00.1 Herpesviral vesicular dermatitis

== ENCOUNTER → 2025-03-29 09:36 | Outpatient (BNVA) | payer MEDICARE, SELFPAY | PROVIDERS: PCP Internal Medicine; Visit Provider Internal Medicine | DX: Z00.01 Encounter for general adult medical examination with abnormal findings (principal); I10 Essential (primary) hypertension; E04.1 Nontoxic single thyroid nodule; M81.0 Age-related osteoporosis without current pathological fracture; E55.9 Vitamin D deficiency, unspecified; H18.511 Endothelial corneal dystrophy, right eye; B00.1 Herpesviral vesicular dermatitis | CPT/HCPCS: 96127; 99212 ==

== ENCOUNTER 2025-07-15 07:37 | Outpatient (REF) | payer MEDICARE, SELFPAY ==
--- OUTSIDE RECORDS SUMMARY | 2025-07-15 07:40 | XMS_ITS | Encounter Summary ---
Author Organization [facility] Address [address] [place] [address] Phone Care Team Providers Care Machine Package Sealer Name Role Phone Steve Cohn Primary Care Provider [phone]- [phone] Marcus Gaona MD Primary Care Provider Rema Monore MD, MPH Unavailable +1- [phone] Reason for Referral * MRI/CAT Scan - Closed Specialty Diagnoses / Procedures Referred By Contac t Referred To Contact Radiology Diagnoses Dizziness Headache, unspecified chronicity pattern Syncope, unspecified Procedures CT Angio Head CT Head CT Angio Head Kev Velazco MD Phone: tel: fax: mailto:[email or web address] Bhavik Carlos, PT [address] [id number] Referral ID Status Reason Start Date Expiration Date Visits Re quested Visits Authorized [id number] Closed 12/24/2015 02/01/2016 1 1 Encounter Details Date Type Department Care Team (Late st Contact Info) Description 01/10/2016 Ancillary Orders [facility] Neurosurgery [address] [place] [address], 7th Floor, [address] [place] [address] Kev Velazco MD [address] [place] [address] [address] [place] [address] (work) [email or web address] Dizziness (Primary Dx); Headache, unspecified [...] unspecified documented in this encounter Care Teams Machine Package Sealer Relationship Specialty Start Date End Date Steve Cohn DO [address] [place] [id number] PCP - General Internal Medicine 11/05/15 03/27/19 Marcus Gaona MD [address] [place] [address] PCP - General 03/28/19 Rema Monroe MD, MPH [address] [facility] [address] [place] [address] [email or web address] Insurance Assigned Provider 12/02/19 01/04/20 documented as of this encounter Additional Source Comments The information contained in this document represents components of the legal health record. It is not the complete legal health record.[facility]
--- OUTSIDE RECORDS SUMMARY | 2025-07-15 07:40 | XMS_ITS | Encounter Summary ---
Author Organization [facility] Address [address] [facility] [facility] [address] [place] [address] Phone Care Team Providers Care Copy Room Technician Name Role Phone Steve Cohn DO Primary Care Provider [phone]- [phone] Marcus Gaona MD Primary Care Provider Rema Monroe MD, MPH Unavailable +1- [phone] Encounter Details Date Type Department Care Team (Late st Contact Info) Description 01/10/2016 Ancillary Orders [facility] [place] [address] [facility] [address], 7th [address], [address] [place] [address] Kev Velazco MD [address] [facility] [address] [place] [address] [email or web address] Dizziness (Primary Dx); Headache, unspecified chronicity pattern; [...] unspecified documented in this encounter Care Teams Copy Room Technician Relationship Specialty Start Date End Date Steve Cohn DO [address] [place] [address] PCP - General Internal Medicine 11/05/15 03/27/19 Marcus Gaona MD [address] [place] [address] PCP - General 03/28/19 Rema Monroe MD, MPH [address] [place] [address] [email or web address] Insurance Assigned Provider 12/02/19 01/04/20 documented as of this encounter Additional Source Comments The information contained in this document represents components of the legal health record. It is not the complete legal health record.[facility]
--- OUTSIDE RECORDS SUMMARY | 2025-07-15 07:40 | XMS_ITS | Clinical Summary ---
Author Organization [facility] Address [address] [facility] [address] [place] [address] Phone Care Team Providers Care Resume Specialist Name Role Phone Marcus Gaona MD Primary Care Provider Allergies Active Allergy Reactions Criticality Noted Date Comments Codeine Hives,Nausea And Vomiting Medium 02/22/2016 Medications lisinopril (PRINIVIL,ZESTRI L) 2.5 MG tablet Take 2.5 mg by mouth daily. Active Lactobacillus acidophilus (PROBIOTIC ORAL) Take 1 tablet by mouth. Active aspirin 325 MG tablet Take 325 mg by mouth. Active lisinopril (PRINIVIL,ZESTRI L) 2.5 MG tablet Take 2.5 mg by mouth. 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 Not on file 02/23/2023 Device with a working camera? Not on file Comments No Sex and Gender Information Value Date Recorded [...] and SMOKELESS TOB ACCO SCREENING 1969 HEPATITIS C SCREENING 1974 MAMMOGRAM 1996 COLOGUARD 2001 COLONOSCOPY 2001 COLORECTAL CANCER SCREENING 2001 FIT TEST 2001 FOBT 2001 SIGMOIDOSCOPY 2001 VIRTUAL COLONOSCOPY 2001 PNEUMOCOCCAL VACCINES (50+ y ears) (1 of 1 - PCV) 2006 ZOSTER VACCINES (1 of 2) 2006 OSTEOPOROSIS SCREENING INITI AL (ONE-TIME) 2021 PAP SMEAR 02/02/2023 02/02/2018 INFLUENZA VACCINE (#1) 2025 COVID-19 VACCINE (2 - 2024-2 6 season) 2025 01/21/2021 RSV VACCINE (1 - 1-dose 75+ series) 2031 HEPATITIS A VACCINES Aged Out No long er eligible based on patient's age to complete this topic HIB VACCINES Aged Out No longer eligi ble based on patient's age to complete this topic MENINGOCOCCAL VACCINES (ACWY) Aged Out No longer eligible based on patient's age to complete this topic MENINGOCOCCAL VACCINES (B) Aged Out N o longer eligible based on patient's age to complete this topic Medical Devices Not on file Procedures Procedure Name Priority Date/Time Associated Diagnosis Comments PAP SMEAR FOR RESULT ENTRY ONLY Routine 02/02/2018 from Last 3 Months or Most Recently Relevant to Health Maintenance Results * PAP SMEAR FOR RESULT ENTRY ONLY (02/02/2018) HM Pap smear NIL, neg HPV Historical Provider MD HEALTH MAINTENANCE Final Result from Last 3 Months or Most Recently Relevant to Health Maintenance Insurance HMO POS HMO POS HMO [place] [address] [place] [address] HMO POS HMO POS HMO POS HMO POS HMO POS Care Teams Resume Specialist Relationship Specialty Start Date End Date Marcus Gaona MD [address] [place] [phone] PCP - General 03/28/19 Additional Source Comments The information contained in this document represents components of the legal health record. It is not the complete legal health record.[facility]
--- OUTSIDE RECORDS SUMMARY | 2025-07-15 07:40 | XMS_ITS | Patient Health Record ---
Author Organization [facility] Address [address] [place] [id number] Care Team Providers Care Lawn Mower Mechanic Name Role Phone Sandee Hollis Primary Care Provider Carlos Hensley [phone] Allergies Allergen (clinical drug ingredient) Drug/Non Drug [...] Problem Status W/U Status Risk Notes Problem Screening for malignant neoplasm of colon ([id number]) Encounter for screening for malignant neoplasm of colon (Z12.11) Active confirmed Problem Preprocedural examination (091308096860127) Preprocedural examination (Z01.818) Active confirmed Plan Of Treatment Future Test Test Name Order Date COLONOSCOPY 09/09/2018 Insurance Providers Payer Name Payer Address Payer Phone Subscriber Number Group Number Insured Name Patient Relationship to Insured Coverage Start Date Coverage End Date [facility] [employer] [address] [place] [address] [id number] RONAL REEDER Self - patient is the insured Medical (General) History Medical History History ICD Code Hypertension Right-sided carotid artery aneurysm Denies VA,DM,CVA,Lung disease,renal dise ase Surgical History Surgery Date(Month/Year) Ovarian cyst surgery x 3 Tonsillectomy
--- OUTSIDE RECORDS SUMMARY | 2025-07-15 07:40 | XMS_ITS | Encounter Summary ---
Author Organization [facility] Address [address] [facility] [address] [place] [address] Phone Care Team Providers Care Financial Accounting Analyst Name Role Phone Steve Cohn DO Primary Care Provider [phone]- [phone] Marcus Gaona MD Primary Care Provider Rema Monroe MD, MPH Unavailable +1- [phone] Encounter Details Date Type Department Care Team (Late st Contact Info) Description 01/10/2016 Ancillary Orders [facility] [place] [address] [facility], 7th Floor, [address] [place] [address] Kev Velazco MD [address] [facility] [address] [place] [address] [email or web address] Dizziness (Primary Dx); [...] unspecified documented in this encounter Care Teams Financial Accounting Analyst Relationship Specialty Start Date End Date Steve Cohn DO [address] [place] [address] PCP - General Internal Medicine 11/05/15 03/27/19 Marcus Gaona MD [address] [place] [address] PCP - General 03/28/19 Rema Monroe MD, MPH [address] [place] [address] [email or web address] Insurance Assigned Provider 12/02/19 01/04/20 documented as of this encounter Additional Source Comments The information contained in this document represents components of the legal health record. It is not the complete legal health record.[facility]
--- OUTSIDE RECORDS SUMMARY | 2025-07-15 07:40 | XMS_ITS | Clinical Summary ---
Author Organization [facility] Address [address] [facility] [address] [place] [address] Care Team Providers Care Extrusion Process Operator Name Role Phone Queta Christensen MD Primary Care Provider [phone] Queta Christenesn MD Unavailable [phone] Allergies Active Allergy Reactions Criticality Noted Date [...] 1956 FIT-DNA 1956 FIT 1956 FOBT 1956 Lipid Panel 1956 Sigmoidoscopy 1956 Hepatitis C Screening 1974 DTaP/Tdap/Td Vaccines (1 - Tdap) 1975 Mammogram 1996 Zoster Vaccines (1 of 2) 2006 Medicare Annual Wellness (AWV) 08/28/2022 Depression Screening 09/28/2024 COVID-19 Vaccine (1 - 2024-2 6 season) 2025 Influenza Vaccine (#1) 2025 Pneumococcal Vaccine: 50+ Years Completed Pneumococcal Vaccine: Pediat rics (0 to 5 Years) and At-Risk Patients (6 to 49 Years) Discontinued 07/24/2022 HIB Vaccines Aged Out No longer eligi [...] Documents on File Type Date Recorded Patient Power Lineman Technician Expl anation Health Care Proxy 11/15/2020 3:25 PM Conve rsion - External Healthcare Proxy ([facility]) Care Teams Extrusion Process Operator Relationship Specialty Start Date End Date Queta Christensen MD [address] [place] [address] PCP - General 11/01/21 Queta Christensen MD [address] [place] [address] 11/01/21
[2025-07-15 11:51] LABS: Anion Gap 13 (12-20); Blood Urea Nitrogen 13 mg/dL (9-16); Calcium 9.4 mg/dL (8.4-10.2); Carbon Dioxide 25 mmol/L (22-29); Chloride 105 mmol/L (96-108); Estimated Glomerular Filt Rate > 60; Potassium 4.4 mmol/L (3.3-5.1); Sodium 139 mmol/L (135-145)
== END 2025-07-15 07:38 | disposition home or self-care (01) ==
LOC: HO.HMGCLDS 07:37
PROVIDERS: PCP Internal Medicine; Visit Provider Internal Medicine Endocrinology, Diabetes & Metabolism
DX: M81.0 Age-related osteoporosis without current pathological fracture (principal)
CPT/HCPCS: 36415; 80048

== ENCOUNTER 2025-08-01 08:23 | Outpatient (AMB) | payer MEDICARE, SELFPAY ==
--- NOTE | 2025-08-01 08:24 | A.OFFVIS_ITS ---
Vital Signs 08/01/25 08:26 Height 5 ft 4.84 in Weight 128 lb 8.472 oz BMI 21.5 BP 114/66 Blood Pressure Location Rt brachial Position Sitting Pulse 66 Pulse Source Pulse Oximeter Pulse Oximetry (%) 97 Oxygen Delivery Method Room Air Intake Visit Reasons: f/u osteoporosis/prolia Intake Note: Patient present today for Osteoporosis follow up and Prolia injection. Water Softener Servicer And Installer Required: No Accompanied by: Self / Same As Patient Allergies Codeine Sulfate Allergy (Unknown, Uncoded 08/01/25 08:27) GI upset, hives lobster Adverse Reaction (Uncoded 08/01/25 08:27) hives Medication List - Last Reconciled 08/01/25 by Carlos Cummins MD acyclovir 400 mg PO DAILY denosumab (Prolia) 60 mg subcut [id number] ketorolac 0.5% drps ophthalmic (eye) lactobacillus combination no.9 (Adult 50 Plus Probiotic) 4,000 mmu cells PO DAILY lisinopril 2.5 mg PO DAILY magnesium aspart,citrate,oxide mg PO melatonin 5 mg PO ONCE HPI Comments Details: 69 YO Female with PMHx of Osteoporosis, who is seen in F/U for Osteoporosis.. Completed a biochemical assessment after our initial visit which revealed Calcium higher than expected 04/02/2021 Calcium 9.9, Albumin 4.3, PTH 43, Vitamin D 38.8. Her 24 hour urine Calcium was mid normal. She had labs repeated 07/18/2021 with Calcium 9.7, Albumin 4.4, PTH 43 and Vitamin D 43.5. 24 hour urine calcium was WNL. US of the thyroid was read as multiple bilateral subcentimeter thyroid nodules, but review of images does appear to show that what was read as a 0.4 cm RMP thyroid nodule is in fact a parathyroid adenoma. We discussed the possibility of normocalcemic normohormonal hyperparathyroidism. Decision was made to attempt medical management with alendronate for 1 year and then repeat her BMD to assess for improvements. She is now 6 months into treatment and is tolerating this well. First diagnosed in 2020 with her first bone density. She was starte don Fosamax in early 2021 and remains on this weekly now. BMD shows significant gains. Has 2 servings of dietary calcium per day in the form of yogurt, cheese and almond milk. Does not take a Calcium supplement. Takes 2000 IU of Vitamin D daily. Denies ever using PPI, anticoagulant, antiepileptic or glucocorticoid medication. Does weight bearing exercise 7 days per week in the form of walking and horse back riding. Fracture history: Prior avulsion fracture of the ankle, 1 year ago. Had a prior compression fracture of T12 in 2000. 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 Menses was always irregular due to PCOS and Endometriosis. . Menopause was age 54. Does have a personal history of Kidney stones, just one episode 10-12 years ago. Has a family history of Osteoporosis in her Mother with nephrolithiasis in her Father. UTD on dental cleanings and sees dentist every 6 months. No planned upcoming dental work or extractions. DXA: 12/02/2022 FINDINGS: AP SPINE L1-L4: Current: BMD 0.952 g/cm2, Z-score -0.1, T-score -1.9, osteopenia, 3.8% increase from previous, 18.3% decrease from baseline (<5% change is not significant). Prior: BMD 0.917 g/cm2. Baseline: BMD 1.165 g/cm2. LEFT FEMUR, NECK: Current: BMD 0.683 g/cm2, Z-score -0.9, T-score -2.6, osteoporosis. Prior: BMD 0.628 g/cm2. Baseline: BMD 0.827 g/cm2. LEFT FEMUR, TOTAL: Current: BMD 0.627 g/cm2, Z-score -1.6, T-score -3.0, osteoporosis, 5.6% increase from previous, 18.4% decrease from baseline (<5% change is not significant). Prior: BMD 0.594 g/cm2. Baseline: BMD 0.768 g/cm2. Thyroid US: 08/28/2022 Right Thyroid Lobe: 5.1 x 1.6 x 2.0 cm, volume 8.2 mL. Previously 5.7 x 1.7 x 1.4 cm, volume 7.1 mL. Parenchyma: The gland echotexture is homogeneous. Thyroid vascularity is normal. Left Thyroid Lobe: 4.7 x 1.6 x 1.3 cm, volume 5.3 mL. Previously 4.8 x 1.7 x 1.6 cm, volume 6. mL. Parenchyma: The gland echotexture is homogeneous. Thyroid vascularity is normal. Isthmus: 0.3 cm in maximum AP dimension. Previously 0.3 cm. Estimated total number of nodules greater than or equal to 1 cm: 0. Diesel Engineer nodules are described as follows: 1.? Location: Right isthmus. ?? ? Size: 0.6 x 0.6 x 0.3 cm, volume 0.05 mL. ?? ? Previously: 0.7 x 0.3 x 0.5 cm, volume 0.06 mL. ?? ? Nodule characteristics: ?? ? Composition: Solid (2). ?? ? Echogenicity: Hyperechoic (1). ?? ? Shape: Not taller than wide (0). ?? ? Margins: Smooth (0). ?? ? Echogenic Foci: None (0).? ACR TI-RADS total points: 3 Previous: 0 ?? ? ACR TI-RADS category: 3 Previous: 1 ? Significant change in size (>/= 20% in 2 dimensions and minimal increase of 2 mm or 50% or greater increase in volume): None ?? ? Change in features: None ?? ? Change in ACR TI-RADS risk category: None 2.? Location: Right mid/lateral. ?? ? Size: 0.3 x 0.2 x 0.3 cm, volume 0.09 mL. ?? ? Previously: 0.4 x 0.3 x 0.3 cm, volume 0.02 mL. ?? ? Nodule characteristics: ?? ? Composition: Spongiform (0). ?? ? Echogenicity: Anechoic (0). ?? ? Shape: Not taller than wide (0). ?? ? Margins: Smooth (0). ?? ? Echogenic Foci: None (0).? ACR TI-RADS total points: 0 Previous: 0 ?? ? ACR TI-RADS category: 1 Previous: 1 ? Significant change in size (>/= 20% in 2 dimensions and minimal increase of 2 mm or 50% or greater increase in volume): None ?? ? Change in features: None ?? ? Change in ACR TI-RADS risk category: None 3.? Location: Right inferior medial. ?? ? Size: 0.4 x 0.4 x 0.3 cm, volume 0.02 mL. ?? ? Previously: 0.5 x 0.4 x 0.4 cm, volume 0.04 mL. ?? ? Nodule characteristics: ?? ? Composition: Solid (2). ?? ? Echogenicity: Hyperechoic (1). ?? ? Shape: Not taller than wide (0). ?? ? Margins: Ill-defined (0). ?? ? Echogenic Foci: None (0).? ACR TI-RADS total points: 3 Previous: 3 ?? ? ACR TI-RADS category: 3 Previous: 3 ? Significant change in size (>/= 20% in 2 dimensions and minimal increase of 2 mm or 50% or greater increase in volume): None ?? ? Change in features: None ?? ? Change in ACR TI-RADS risk category: None NODES: No lymphadenopathy is seen in the tissue surrounding the thyroid gland. Labs: Laboratory Tests 11/05/22 11/05/22 11/11/22 10:00 10:00 07:00 Sodium 139 Potassium 4.4 Creatinine 0.73 Estimated GFR > 60 N-Telopeptide X-linked 16 25-OH Vitamin D Total 31.3 TSH 0.79 Free T4 1.00 PTH Intact 73 Calcium (PTH Intact) 9.9 Currently on Prolia. Started for 2023. No fracture since last visit. Tolerating Prolia nicely The patient is a 69-year-old female presenting for osteoporosis management and preventative care. She has been on Prolia for about a year and a half, starting in November of the previous year, and has tolerated it well without any fractures since the last visit. She does not take calcium supplements due to previously elevated calcium levels but maintains dietary calcium intake through almond milk. The patient does not currently take vitamin D supplements, although her levels were adequate in 2023. She is due for a bone density test to assess the current status of her osteoporosis and to determine the continuation of Prolia therapy. The goal is to minimize Prolia exposure and potentially transition to Alendronate if bone density improves. - Prolia: Taken for osteoporosis management since November of last year, well tolerated. - Alendronate: Previously taken, tolerated well. The patient maintains a diet that includes almond milk to ensure adequate calcium intake, as she does not take calcium supplements. [facility] Medical History Family history of thoracic aortic aneurysm Thyroid nodule Multinodular thyroid Vitamin D deficiency Osteoporosis Cataract, right Fuchs' corneal dystrophy of right eye Ankle fracture Menopause Mild mitral regurgitation Seasonal allergies Recurrent cold sores Essential hypertension Surgical History History of colposcopy Hx of colonoscopy History of ovarian cyst History of foot surgery Family History Father HTN (hypertension) CVD (cardiovascular disease) Nephrolithiasis Mother HTN (hypertension) Osteoporosis Sister Thoracic aortic aneurysm Paternal Uncle Mental health disorder Social History Household Members: Spouse Housing: House Alcohol intake: current Alcohol intake frequency: a few times a month Alcohol type: wine Patient Tobacco Use Status: Former Tobacco user Years Smoked: 3 yrs e-Cigarette/Vaping Use: Never Used Current occupational status: retired Cognitive needs: No Hearing needs: No Vision needs: No Physical Exam Vital Signs: BMI result Body Mass Index 21.5 Assessment & Plan Assessment & Plan (1) Osteoporosis: Code(s): M81.0 - Age-related osteoporosis without current pathological fracture Category: Medical Plan: This is a 69-year-old white female with a history of osteoporosis with negative secondary workup. She is currently on alendronate and had increases in bone density on recent bone density. However she does have residual significant osteoporosis. Currently on Prolia since November 2023 The plan is to repeat DEXA bone density. Depending upon repeat DEXA, may continue Prolia or transition to oral bisphosphonate 1. Osteoporosis The patient has been on Prolia for approximately a year and a half, with good tolerance and no fractures reported since the last visit. The plan includes conducting a bone density test to evaluate the current status and determine the continuation of Prolia therapy. If bone density shows improvement, the patient may transition to Alendronate to minimize Prolia exposure. I discussed with the patient the current management of her osteoporosis with Prolia and the importance of monitoring bone density to guide future treatment decisions. We reviewed the potential transition to Alendronate if bone density improves, emphasizing the goal of minimizing Prolia exposure. The patient was informed about the need for a follow-up bone density test and the possibility of adjusting her treatment plan based on the results. - Continue current Prolia treatment as prescribed. - Maintain dietary calcium intake through almond milk. - Schedule and complete the bone density test as ordered. - The patient had an opportunity to ask questions regarding treatment plan. The patient expressed understanding and agreement with the above treatment plan. Patient was informed and verbally consented to the use of an ambient scribe for clinic note documentation during this visit. Orders: Orders XR DEXA axial skeleton Today M81.0 - Age-related osteoporosis without current pathological fracture Coding Level of Care Code Est Pt Level 3 (06902) Diagnoses Osteoporosis M81.0
[2025-08-01 08:26] VITALS: BP 114/66; PULSE 66; O2SAT 97; BMI 21.5
--- OUTSIDE RECORDS SUMMARY | 2025-08-01 08:41 | XMS_ITS | Encounter Summary ---
Author Organization [facility] Address [address] [facility] [address] [place] [address] Phone Care Team Providers Care Custom Wood Stair Builder Name Role Phone Steve Cohn Primary Care Provider [phone] Marcus Gaona MD Primary Care Provider Rema Monroe MD, MPH Unavailable [phone] Reason for Referral * MRI/CAT Scan - Closed Specialty Diagnoses / Procedures Referred By Contac t Referred To Contact Radiology Diagnoses Dizziness Headache, unspecified chronicity pattern Syncope, unspecified Procedures CT Angio Head CT Head CT Angio Head Kev Velazco MD Phone: tel: fax: mailto:[email or web address] [email or web address] Bhavik Carlos, PT [address] [id number] Referral ID Status Reason Start Date Expiration Date Visits Re quested Visits Authorized [id number] Closed 12/24/2015 02/01/2016 1 1 Encounter Details Date Type Department Care Team (Late st Contact Info) Description 01/10/2016 Ancillary Orders [facility] [place] [address] [place] [address], 7th Floor, [address] [place] [address] Kev Velazco MD [address] [place] [address] [address] [place] [address] (work) [email or web address] Dizziness (Primary Dx); Headache, unspecified chronicity [...] unspecified documented in this encounter Care Teams Custom Wood Stair Builder Relationship Specialty Start Date End Date Steve Cohn DO [address] [place] [address] PCP - General Internal Medicine 11/05/15 03/27/19 Marcus Gaona MD [address] [place] [address] PCP - General 03/28/19 Rema Monroe MD, MPH [address] [place] [id number] [email or web address] Insurance Assigned Provider 12/02/19 01/04/20 documented as of this encounter Additional Source Comments The information contained in this document represents components of the legal health record. It is not the complete legal health record.[facility]
--- OUTSIDE RECORDS SUMMARY | 2025-08-01 08:41 | XMS_ITS | Encounter Summary ---
Author Organization [facility] Address [address] [facility] [address] [place] [address] Phone Care Team Providers Care Turnaround Engineer Name Role Phone Steve Cohn DO Primary Care Provider [phone] Marcus Gaona MD Primary Care Provider Rema Monroe MD, MPH Unavailable [phone] Encounter Details Date Type Department Care Team (Late st Contact Info) Description 01/10/2016 Ancillary Orders [facility] [place] Neurosurgery [address] [facility], 7th Floor, [address] [place] [address] Kev Velazco MD [address] [facility] [address] [place] [address] [email or web address] Dizziness (Primary Dx); Headache, unspecified chronicity pattern; [...] unspecified documented in this encounter Care Teams Turnaround Engineer Relationship Specialty Start Date End Date Steve Cohn DO [address] [place] [address] PCP - General Internal Medicine 11/05/15 03/27/19 Marcus Gaona MD [address] [place] [address] PCP - General 03/28/19 Rema Monroe MD, MPH [address] [place] [phone] [email or web address] Insurance Assigned Provider 12/02/19 01/04/20 documented as of this encounter Additional Source Comments The information contained in this document represents components of the legal health record. It is not the complete legal health record.[facility]
--- OUTSIDE RECORDS SUMMARY | 2025-08-01 08:41 | XMS_ITS | Patient Health Record ---
Author Organization [facility] Address [address] [place] [id number] Care Team Providers Care Packaging Inspector Name Role Phone Sandee Hollis Primary Care Provider Carlos Hensley [phone] Allergies Allergen (clinical drug ingredient) Drug/Non Drug [...] Problem Screening for malignant neoplasm of colon (203526077) Encounter for screening for malignant neoplasm of colon (Z12.11) Active confirmed Problem Preprocedural examination (496562889061337) Preprocedural examination (Z01.818) Active confirmed Plan Of Treatment Future Test Test Name Order Date COLONOSCOPY 09/09/2018 Insurance Providers Payer Name Payer Address Payer Phone Subscriber Number Group Number Insured Name Patient Relationship to Insured Coverage Start Date Coverage End Date [facility] [employer] [facility] [address] [place] [address] [id number] RONAL REEDER Self - patient is the insured Medical (General) History Medical History History ICD Code Hypertension Right-sided carotid artery aneurysm Denies AK,DM,CVA,Lung disease,renal dise ase Surgical History Surgery Date(Month/Year) Ovarian cyst surgery x 3 Tonsillectomy
--- OUTSIDE RECORDS SUMMARY | 2025-08-01 08:41 | XMS_ITS | Clinical Summary ---
Author Organization [facility] Address [address] [facility] [address] [place] [address] Care Team Providers Care Measurement Specialist Name Role Phone Queta Christensen MD Primary Care Provider [phone] Queta Christensen MD Unavailable [phone] Allergies Active Allergy Reactions Criticality Noted Date [...] Documents on File Type Date Recorded Patient Game Technician Expl anation Health Care Proxy 11/15/2020 3:25 PM Conve rsion - External Healthcare Proxy ([facility]) Care Teams Measurement Specialist Relationship Specialty Start Date End Date Queta Christensen MD [address] [place] [address] PCP - General 11/01/21 Queta Christensen MD [address] [place] [address] 11/01/21
--- OUTSIDE RECORDS SUMMARY | 2025-08-01 08:41 | XMS_ITS | Clinical Summary ---
Author Organization [facility] Address [address] [address] Phone Care Team Providers Care Electric Organ Checker Name Role Phone Marcus Gaona MD Primary [...] Noted Date Diagnosed Date Visit for routine hospital food service worker exam 03/28/2019 Resolved Problems Problem Noted Date [...] POS HMO POS HMO [place] [address] [place] [id number] HMO POS HMO POS HMO POS HMO POS HMO POS Care Teams Electric Organ Checker Relationship Specialty Start Date End Date Marcus Gaona MD PCP - General 03/28/19 Additional Source Comments The information contained in this document represents components of the legal health record. It is not the complete legal health record.[facility]
--- OUTSIDE RECORDS SUMMARY | 2025-08-01 08:41 | XMS_ITS | Encounter Summary ---
Author Organization [facility] Address [address] [facility] [address] [place] [address] Phone Care Team Providers Care Livestock Ranch Hand Name Role Phone Steve Cohn DO Primary Care Provider [phone] Marcus Gaona MD Primary Care Provider Rema Monroe MD, MPH Unavailable [phone] Encounter Details Date Type Department Care Team (Late st Contact Info) Description 01/10/2016 Ancillary Orders [facility] Neurosurgery [address] [facility], 7th Floor, [address] [place] [address] Kev Velazco MD [address] [facility] [address] [place] [address] [email or web address] Dizziness (Primary Dx); Headache, unspecified chronicity pattern; [...] unspecified documented in this encounter Care Teams Livestock Ranch Hand Relationship Specialty Start Date End Date Steve Cohn DO [address] [place] [address] PCP - General Internal Medicine 11/05/15 03/27/19 Marcus Gaona MD [address] [place] [address] PCP - General 03/28/19 Rema Monroe MD, MPH [address] [place] [id number] [email or web address] Insurance Assigned Provider 12/02/19 01/04/20 documented as of this encounter Additional Source Comments The information contained in this document represents components of the legal health record. It is not the complete legal health record.[facility]
== END 2025-08-01 08:44 | disposition home or self-care (01) ==
LOC: HO.ENCR 08:23
PROVIDERS: PCP Internal Medicine; Visit Provider Internal Medicine Endocrinology, Diabetes & Metabolism
DX: M81.0 Age-related osteoporosis without current pathological fracture (principal)
CPT/HCPCS: 99213

== ENCOUNTER → 2025-08-01 08:23 | Outpatient (BNVA) | payer MEDICARE, SELFPAY | PROVIDERS: PCP Internal Medicine; Visit Provider Internal Medicine Endocrinology, Diabetes & Metabolism | DX: M81.0 Age-related osteoporosis without current pathological fracture (principal); Z79.899 Other long term (current) drug therapy; Z87.81 Personal history of (healed) traumatic fracture | CPT/HCPCS: 96372; 99212; J0897 ==

== ENCOUNTER 2025-09-05 07:22 | Outpatient (REF) | payer MEDICARE, SELFPAY ==
--- OUTSIDE RECORDS SUMMARY | 2025-09-05 07:25 | XMS_ITS | Encounter Summary ---
Author Organization [facility] Address [address] [facility] [address] [place] [address] Phone Care Team Providers Care Field Application Engineer Name Role Phone Steve Cohn Primary Care Provider [phone] Marcus Gaona MD Primary Care Provider Rema Monroe MD, MPH Unavailable [phone] Reason for Referral * MRI/CAT Scan - Closed Specialty Diagnoses / Procedures Referred By Contac t Referred To Contact Radiology Diagnoses Dizziness Headache, unspecified chronicity pattern Syncope, unspecified Procedures CT Angio Head CT Head CT Angio Head Kev Velazco MD Phone: tel: fax: mailto:[email or web address] [email or web address] Bhavik Carlos, PT [address] [place] [address] Referral ID Status Reason Start Date Expiration Date Visits Re quested Visits Authorized [id number] Closed 12/24/2015 02/01/2016 1 1 Encounter Details Date Type Department Care Team (Late st Contact Info) Description 01/10/2016 Ancillary Orders [facility] Neurosurgery [address] [place] [address], 7th Floor, [address] [place] [address] Kev Velazco MD [address] [place] [address] [address] [place] [address] (work) [email or web address] Dizziness (Primary [...] unspecified documented in this encounter Care Teams Field Application Engineer Relationship Specialty Start Date End Date Steve Cohn DO [address] [place] [address] PCP - General Internal Medicine 11/05/15 03/27/19 Marcus Gaona MD [address] [place] [address] PCP - General 03/28/19 Rema Monroe MD, MPH [address] [place] [phone] [email or web address] Insurance Assigned Provider 12/02/19 01/04/20 documented as of this encounter Additional Source Comments The information contained in this document represents components of the legal health record. It is not the complete legal health record.[facility]
--- OUTSIDE RECORDS SUMMARY | 2025-09-05 07:25 | XMS_ITS | Encounter Summary ---
Author Organization [facility] Address [address] [facility] [address] [place] [address] Phone Care Team Providers Care Ornamental Iron Erector Name Role Phone Steve Cohn DO Primary Care Provider [phone] Marcus Gaona MD Primary Care Provider Rema Monroe MD, MPH Unavailable [phone] Encounter Details Date Type Department Care Team (Late st Contact Info) Description 01/10/2016 Ancillary Orders [facility] [place] [address] [facility], 7th Floor, [address] [place] [address] Kev Velazco MD [address] [facility] [address] [place] [address] [email or web address] [email or web address] Dizziness (Primary Dx); Headache, unspecified [...] unspecified documented in this encounter Care Teams Ornamental Iron Erector Relationship Specialty Start Date End Date Steve Cohn DO [address] [place] [address] PCP - General Internal Medicine 11/05/15 03/27/19 Marcus Gaona MD [address] [place] [address] PCP - General 03/28/19 Rema Monroe MD, MPH [address] [place] [phone] [email or web address] Insurance Assigned Provider 12/02/19 01/04/20 documented as of this encounter Additional Source Comments The information contained in this document represents components of the legal health record. It is not the complete legal health record.[facility]
--- OUTSIDE RECORDS SUMMARY | 2025-09-05 07:25 | XMS_ITS | Encounter Summary ---
Author Organization [facility] Address [address] [place] [address] Phone Care Team Providers Care Computer Systems Technology Instructor Name Role Phone Steve Cohn DO Primary Care Provider [phone] Marcus Gaona MD Primary Care Provider Rema Monroe MD, MPH Unavailable [phone] Encounter Details Date Type Department Care Team (Late st Contact Info) Description 01/10/2016 Ancillary Orders [facility] Neurosurgery [address], [address] [place] [address] Kev Velazco MD [address] [place] [address] [email or web address] Dizziness (Primary Dx); Headache, unspecified chronicity [...] unspecified documented in this encounter Care Teams Computer Systems Technology Instructor Relationship Specialty Start Date End Date Steve Cohn DO [address] [place] [id number] PCP - General Internal Medicine 11/05/15 03/27/19 Marcus Gaona MD [address] [place] [address] PCP - General 03/28/19 Rema Monroe MD, MPH [address] [place] [id number] [email or web address] Insurance Assigned Provider 12/02/19 01/04/20 documented as of this encounter Additional Source Comments The information contained in this document represents components of the legal health record. It is not the complete legal health record.[facility]
--- OUTSIDE RECORDS SUMMARY | 2025-09-05 07:25 | XMS_ITS | Patient Health Record ---
Author Organization [facility] Address [address] [place] [address] Care Team Providers Care Physical Therapist Clinic Director Name Role Phone Telma Sandee Primary Care Provider Carlos Hensley [phone] Allergies Allergen (clinical drug ingredient) Drug/Non Drug Allergy documented on EMR Reaction Allergy Type Onset Date Status codeine Codeine Sulfate Unknown Drug Allergy A ctive Reason For Referral No Information Medications Medication SIG (Take, Route, Frequency, Duration) Notes Start Date End Date Status Lisinopril 2.5 MG Tablet 1 tablet Orally Once a day Active Probiotic - Tablet Delayed Release Orally Active Aspirin 325 MG Tablet 1 tablet Orally Once a day Active Immunizations Vaccine Route Administration Date Status Comme nts Influenza Unknown 07/29/2018 Administered Social History Tobacco Use: Social History Observation Description Date Details (start date - stop date) Never Smoker NA - NA Social History Drugs/Alcohol: Social Info Question Answer Notes Alcohol Screen Did you have a drink containing alcohol in the past year? Yes How often did you have a drink containing alcohol in the past year? 2 to 4 times a month (2 points) How many drinks did you have on a typical day when you were drinking in the past year? 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 [employer] Section Notes: Nonsmoker; no sig alcohol Problems Problem Type SNOMED Code ICD Code Onset Dates Problem Status W/U Status Risk Notes Problem Screening for malignant neoplasm of colon (654961492) Encounter for screening for malignant neoplasm of colon (Z12.11) Active confirmed Problem Preprocedural examination (758773598296594) Preprocedural examination (Z01.818) Active confirmed Plan Of Treatment Future Test Test Name Order Date COLONOSCOPY 09/09/2018 Insurance Providers Payer Name Payer Address Payer Phone Subscriber Number Group Number Insured Name Patient Relationship to Insured Coverage Start Date Coverage End Date [facility] [employer] [facility] [address] [place] [address] [id number] RONAL GUALLPA Self - patient is the insured Medical (General) History Medical History History ICD Code Hypertension Right-sided carotid artery aneurysm Denies [place],DM,CVA,Lung disease,renal dise ase Surgical History Surgery Date(Month/Year) Ovarian cyst surgery x 3 Tonsillectomy
--- OUTSIDE RECORDS SUMMARY | 2025-09-05 07:25 | XMS_ITS | Clinical Summary ---
Author Organization [facility] Address [address] [place] [address] Care Team Providers Care Multiskill Operator Name Role Phone Queta Christensen MD Primary Care Provider [phone] Queta Christensen MD Unavailable [phone] Allergies Active Allergy Reactions Criticality Noted Date [...] age to complete this topic HPV Vaccines (No Doses Required) Completed Hepatitis A Vaccines Aged Out No long [...] Documents on File Type Date Recorded Patient Adjuster Expl anation Health Care Proxy 11/15/2020 3:25 PM Conve rsion - External Healthcare Proxy ([facility]) Care Teams Multiskill Operator Relationship Specialty Start Date End Date Queta Christensen MD [address] [place] [address] PCP - General 11/01/21 Queta Christensen MD [address] [place] [address] 11/01/21
--- OUTSIDE RECORDS SUMMARY | 2025-09-05 07:25 | XMS_ITS | Clinical Summary ---
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 It is not the complete legal health record.[facility]
[2025-09-05 11:46] LABS: Cholesterol 208 mg/dL (<200); HDL Cholesterol 86 mg/dL (>40); Triglycerides 58 mg/dL (<150)
[2025-09-06 13:59] LABS: CA-125 6 U/mL (<35)
== END 2025-09-05 07:23 | disposition home or self-care (01) ==
LOC: HO.HMGCLDS 07:22
PROVIDERS: PCP Internal Medicine; Visit Provider Internal Medicine
DX: I10 Essential (primary) hypertension (principal); M81.0 Age-related osteoporosis without current pathological fracture; Z87.42 Personal history of other diseases of the female genital tract
CPT/HCPCS: 36415; 80061; 82306; 86304